=== PATIENT | female | born 1950 | race Caucasian/White ===

== ENCOUNTER 2022-03-03 10:58 | Outpatient (CLI) | payer MEDICARE, OTHER, SELFPAY ==
[2022-03-03 11:14] LABS: Chloride* 100 mmol/L (96-114)
[2022-03-03 11:15] LABS: Potassium* 4.3 mmol/L (3.6-5.1); Sodium* 132 mmol/L (135-149)
[2022-03-03 11:17] LABS: Creatinine* 0.9 mg/dL (0.5-1.5); Estimated Glomerular Filt Rate 68 ml/min
[2022-03-03 11:18] LABS: Blood Urea Nitrogen* 17 mg/dL (7-30); Calcium* 9.2 mg/dL (8.4-10.6); Carbon Dioxide* 28 mmol/L (20-32); Glucose* 84 mg/dL (60-115)
== END 2022-03-03 10:59 | disposition home or self-care (01) ==
PROVIDERS: Family Medicine; PCP Family Medicine; Visit Provider Family Medicine
DX: Z01.818 Encounter for other preprocedural examination (principal)
CPT/HCPCS: 80048; 80061; 82306

== ENCOUNTER 2022-04-06 13:01 | Outpatient (CLI) | payer MEDICARE, OTHER, SELFPAY ==
--- NOTE | 2022-04-06 13:00 | CRLHL7_ITS ---
For Patients: As a result of the Century Cures Act, medical imaging exams and procedure reports are released immediately into your electronic medical record. You may view this report before your referring provider. If you have questions, please contact your health care provider. BILATERAL SCREENING MAMMOGRAM WITH COMPUTER-AIDED DETECTION AND TOMOSYNTHESIS TECHNIQUE: CC and MLO views were obtained. These mammographic images have been obtained using full-field digital technique. These mammographic images were interpreted with the benefit of computer-aided detection. Breast Tomosynthesis was used in this interpretation. COMPARISON FILM: 04/02/21, 03/04/20, 02/27/19. FINDINGS: The breasts are heterogeneously dense, which may obscure small masses IMPRESSION: There is no radiographic evidence for malignancy. ASSESSMENT: BI-RADS Category 1: Negative RECOMMENDATION: Routine screening mammogram in 1 year. A lay language report of this examination will be provided to the patient. Geronimo Venegas M.D. Diagnostic Radiologist [email or web address] YONNY/[email or web address]/Dictated by: Geronimo Venegas MD @ 04/07/2022 11:50:00 AM (Electronically Signed)
== END 2022-04-06 13:02 | disposition home or self-care (01) ==
LOC: MAMMO 13:03
PROVIDERS: PCP Family Medicine; Visit Provider Family Medicine
DX: Z12.31 Encounter for screening mammogram for malignant neoplasm of breast (principal); R92.2 Inconclusive mammogram
CPT/HCPCS: 77063; 77067

== ENCOUNTER 2023-03-10 07:54 | Outpatient (CLI) | payer MEDICARE, OTHER, SELFPAY | END 2023-03-10 07:55 | disposition home or self-care (01) | LOC: NFLDREF 14:53 | PROVIDERS: PCP Family Medicine; Referring Provider Family Medicine; Visit Provider Family Medicine | DX: E78.5 Hyperlipidemia, unspecified (principal) | CPT/HCPCS: 80053; 80061 ==

== ENCOUNTER 2023-03-30 09:41 | Outpatient (CLI) | payer MEDICARE, OTHER, SELFPAY ==
--- NOTE | 2023-03-30 09:45 | CRLHL7_ITS ---
For Patients: As a result of the Cures Act, medical imaging exams and procedure reports are released immediately into your electronic medical record. You may view this report before your referring provider. If you have questions, please contact your health care provider. BILATERAL DIAGNOSTIC MAMMOGRAM WITH COMPUTER-AIDED DETECTION AND TOMOSYNTHESIS RIGHT BREAST ULTRASOUND CLINICAL HISTORY: RIGHT breast nipple inversion. COMPARISON: 04/06/2022, 04/02/2021, 03/04/2020. TECHNIQUE: Digital BILATERAL mammogram in 4 projections. Computer-aided detection and tomosynthesis were used. Real-time ultrasound imaging of RIGHT breast with imaging documentation. BREAST COMPOSITION: There are scattered areas of fibroglandular density FINDINGS: 3D CC/MLO BILATERAL mammogram images submitted. Benign calcifications are present BILATERALLY. No suspicious masses or architectural distortion. No adenopathy. Targeted RIGHT breast ultrasound performed adjacent to the RIGHT nipple. Normal breast tissue is present. No suspicious findings. IMPRESSION: No evidence of malignancy. RECOMMENDATIONS: Annual BILATERAL screening mammography. BI-RADS Category 2: Benign Results and recommendations discussed with the patient. A lay language report of this examination will be provided to the patient. Dictated by Geronimo Venegas MD @ 03/30/2023 11:22:27 AM/camilo ZAIRE/Dictated by: Geronimo Venegas MD @ 03/30/2023 11:22:00 AM (Electronically Signed)
--- NOTE | 2023-03-30 10:15 | CRLHL7_ITS ---
For Patients: As a result of the Century Cures Act, medical imaging exams and procedure reports are released immediately into your electronic medical record. You may view this report before your referring provider. If you have questions, please contact your health care provider. PLEASE SEE BILATERAL BREAST DIAGNOSTIC MAMMOGRAM OF SAME DAY. CRL:[email or web address] ZAIRE/Dictated by: Geronimo Venegas MD @ 03/30/2023 11:22:00 AM (Electronically Signed)
== END 2023-03-30 09:42 | disposition home or self-care (01) ==
LOC: MAMMO 09:42
PROVIDERS: PCP Family Medicine; Visit Provider Family Medicine
DX: N64.59 Other signs and symptoms in breast (principal)
CPT/HCPCS: 76642; 77066; G0279

== ENCOUNTER 2023-06-11 21:30 | Emergency (ER) | payer MEDICARE, OTHER, BC, SELFPAY ==
[2023-06-11] VITALS (7 sets, daily range): BP systolic 151–184; BP diastolic 96–102; PULSE 79–91; RESP 16; TEMP 36.7; O2SAT 94–99; BMI 20.8
--- NOTE | 2023-06-11 21:51 | ED_ITS ---
HPI - General Adult General Chief complaint: Hypertension Stated complaint: high blood pressure, headache Time Seen by Provider: 06/11/23 21:50 History of Present Illness HPI narrative: Pt c/o hypertension and headache. Last Tuesday at urgent care, BP was high. Pt advised to see doctor if BP not going down. Pt states BP has been high all week. Pt states she had a virus two weeks ago 73-year-old woman presenting to the emergency department with concern of elevated blood pressure. Was seen in urgent care and advised to follow-up if pressure is not improved. Continues to check blood pressures which have been elevated. Does arrive here with a blood pressure of 184/96. Was not feeling well around suppertime reporting feeling a little lightheaded and foggy. Has had a headache posterior head occipital insertion area and present for couple of weeks. Recent a viral illness with cough that is finally resolved. Is not short of breath. Not having chest pain. Normally quite active without exercise intolerance. Related Data Previous Rx's Medication Instructions Recorded amlodipine 5 mg tablet 5 mg PO DAILY #90 tabs 06/14/23 Allergies Allergy/AdvReac Type Severity Reaction Status Date / Time penicillin V Allergy Severe Rash Verified 06/14/23 13:30 Review of Systems Status of ROS: Reports: 6 or more systems reviewed and unremarkable except as noted in History and below [facility] Medical History Hx of stress fracture (2018) ?Z87.312 - Personal history of (healed) stress fracture (ICD-10) Cataracts, bilateral ?H26.9 - Unspecified cataract (ICD-10) Osteopenia ?M85.80 - Other specified disorders of bone density and structure, unspecified site (ICD-10) Inversion of nipple (2012) ?N64.59 - Other signs and symptoms in breast (ICD-10) Dyslipidemia ?E78.5 - Hyperlipidemia, unspecified (ICD-10) Chronic pain of breast ?N64.4 - Mastodynia (ICD-10) ?G89.29 - Other chronic pain (ICD-10) Surgical History Status post wrist surgery (2013) ?Z98.890 - Other specified postprocedural states (ICD-10) History of foot surgery (2017) ?Z98.890 - Other specified postprocedural states (ICD-10) History of dilation and curettage ?Z98.890 - Other specified postprocedural states (ICD-10) History of colonoscopy (2014) ?Z98.890 - Other specified postprocedural states (ICD-10) History of arthroscopy of right knee (11/20/18) ?Z98.890 - Other specified postprocedural states (ICD-10) Social History Narrative: , retired teacher, 2 adult children, lives in [place] exercises regularly- daily; walks 1h treadmill, weights non-smoker social drinker- 4 glasses wine/week What is your current living situation?: I presently have a place to live Problems where you live: declined to answer In the past 12 months, utilities in danger of being shut off: no In past 12 months, lack of transportation kept you from medical appts, meetings, work, or getting things needed for daily living: no In the past 12 mos, have been you worried that your food would run out before you had money to buy more?: never true In the past 12 mos, the food you bought just didn't last and you didn't have money to buy more?: never true Smoking Status: Never smoker Do you use any of these nicotine containing products: None Second hand tobacco smoke exposure: No How often do you have a drink containing alcohol: 2-3 times a week AUDIT-C Alcohol total score: 3 Non-prescribed substance use: denies use How often does anyone, including family, friends and others, physically hurt you : never How often does anyone, including family, friends and others, insult or talk down to you: never How often does anyone, including family, friends and others, threaten you with harm: never How often does anyone, including family, friends and others, scream or curse at you: never Little interest or pleasure in doing things: not at all Feeling down, depressed, or hopeless: not at all Exam Narrative: Exam Narrative: Very pleasant. Carefully casually groomed. Speaking fluidly easily. Cranial nerves 2-12 intact. Full strength throughout. Lower extremities are without edema. Lungs are clear. Heart in mildly elevated rate with regular rhythm. No murmur rub or gallop identified. Neck is supple. Some soreness in the kristen cervical muscle occipital insertion. Const: Vital Signs, click to edit/add: Vital Signs - 24 hr 06/11/23 21:32 06/11/23 22:57 06/11/23 22:57 Temperature 98.1 F Pulse Rate 84 Pulse Rate [Pulse Oximeter] 91 Respiratory Rate 16 Blood Pressure Blood Pressure [Ri ght Upper Arm] 184/96 H 162/102 H Pulse Oximetry 99 95 Oxygen Delivery Me thod Room Air Room Air 06/11/23 23:00 06/11/23 23:02 06/11/23 23:03 Temperature Pulse Rate 91 84 79 Pulse Rate [Pulse Oximeter] Respiratory Rate Blood Pressure 152/97 H Blood Pressure [Ri ght Upper Arm] Pulse Oximetry 96 96 97 Oxygen Delivery Me thod 06/11/23 23:30 06/11/23 23:32 Temperature Pulse Rate 87 89 Pulse Rate [Pulse Oximeter] Respiratory Rate Blood Pressure 151/97 H Blood Pressure [Ri ght Upper Arm] Pulse Oximetry 96 94 Oxygen Delivery Me thod Documenting provider has reviewed patient's vital signs: yes Course Vital Signs Vital signs: Initial Vital Signs Temperature 98.1 F 06/11/23 21:32 Temperature Source Temporal Artery Scan 06/11/23 21:32 Pulse Rate 91 06/11/23 21:32 Respiratory Rate 16 06/11/23 21:32 Blood Pressure 184/96 H 06/11/23 21:32 Blood Pressure Mean 125 H 06/11/23 21:32 Blood Pressure Position Sitting 06/11/23 21:32 Pulse Oximetry 99 06/11/23 21:32 Oxygen Delivery Method Room Air 06/11/23 21:32 Vital Signs Temperature 98.1 F 06/11/23 21:32 Pulse Rate 91 06/11/23 21:32 Respiratory Rate 16 06/11/23 21:32 Blood Pressure 184/96 H 06/11/23 21:32 Pulse Oximetry 99 06/11/23 21:32 Oxygen Delivery Method Room Air 06/11/23 21:32 Temperature 98.1 F 06/11/23 21:32 Pulse Rate 89 06/11/23 23:32 Respiratory Rate 16 06/11/23 21:32 Blood Pressure 151/97 H 06/11/23 23:32 Pulse Oximetry 94 06/11/23 23:32 Oxygen Delivery Method Room Air 06/11/23 22:57 Medications Administered Medications: Discontinued Medications Generic Name Dose Route Start Last Admin Trade Name Francis PRN Reason Stop Dose Admin Amlodipine Besylate 5 mg 06/11/23 23:49 06/12/23 00:15 Amlodipine 5 Mg Tablet PO 06/11/23 23:50 5 mg ONCE ONE Administration Sodium Chloride 1,000 mls @ 1,000 mls/hr 06/11/23 22:16 06/11/23 23:47 0.9 % Sodium Chloride 1000 Ml IV 06/11/23 23:15 Infused .Q1H ONE Infusion Ketorolac Tromethamine 15 mg 06/11/23 22:16 06/11/23 22:34 Ketorolac 15 Mg/Ml Inj IVP 06/11/23 22:17 15 mg ONCE ONE Administration Medical Decision Making MDM Narrative Medical decision making narrative: Reviewing records does show history of elevated blood pressures. Generally both systolic and diastolic numbers are elevated. Headache would appear to be tension related. She would like relief of this headache. She is not encephalopathic and I do not see evidence of infectious etiology her otherwise to suggest meningitis. Feelings of stress over known elevated blood pressures might be contributing to feelings of fogginess. She may be sensitive to relatively modest elevations in blood pressure as well. After discussion she would like treatment for headache. Decided to initiate also antihypertensive. Considering elevated diastolic and systolic numbers and given level of activity I think she would tolerate amlodipine and probably not have much in the way of peripheral edema. Would want to avoid beta-daisy here of course. Does not have diabetes or other renal issues to prompt consideration of other medications of more renal action. Initiating IV fluids lower dose ketorolac I think should be sufficient. Will also check labs and EKG as I do not see prior yet, as diagnosing here with hypertension and initiating treatment. On reassessment is feeling improved. Labs are quite good. However hemoglobin has drifted a little bit down 1 g from prior check. She is not describing any evidence of bleeding. Further exploration here I thinking can continue in primary care. See patient discharge plan for further discussion Medical Records Medical records reviewed: Yes I reviewed the patient's medical records Lab Data Lab results reviewed: Yes I reviewed the patient's lab results Labs: Lab Results 06/11/23 06/11/23 Range/Units 22:27 23:50 Hgb 10.9 L (12.0-16.0) gm/dL Sodium 135 (135-149) mmol/L Potassium 3.7 (3.6-5.1) mmol/L Chloride 101 (96-114) mmol/L Carbon Dioxide 25 (20-32) mmol/L Anion Gap 9 (7-15) mEq/L BUN 9 (7-30) mg/dL Creatinine 0.6 (0.5-1.5) mg/dL Estimated Creat Clear 44.18 Estimated GFR 94 ml/min Glucose 84 (60-115) mg/dL Calcium 9.2 (8.4-10.6) mg/dL Troponin I < 0.01 L (0.01-0.04) ng/mL NT-Pro-B Natriuret Pep 213 pg/mL TSH 2.090 (0.270-4.20) uIU/mL Urine Color Yellow (Yellow) Urine Appearance Clear (Clear) Urine pH 7.0 (5.0-8.5) Ur Specific Sanford 1.010 (1.000-1.030) Urine Protein Negative (Negative) Urine Glucose (UA) Negative (Negative) Urine Ketones Negative (Negative) Urine Blood Negative (Negative) Urine Nitrite Negative (Negative) Urine Bilirubin Negative (Negative) Urine Urobilinogen 0.2 (0.2-1.0) Ur Leukocyte Esterase Negative (Negative) Urine RBC 0-2 (0-2) Urine WBC 0-2 (0-5) Ur Squamous Epith Cells Few (None-Few) Urine Bacteria None (None) ECG Data Attestation: I personally reviewed and interpreted this ECG as follows: (Normal sinus rhythm. Rate of 89) Discharge Plan Discharge Clinical Impression: Headache High blood pressure Qualifiers: Hypertension type: primary hypertension Qualified Code(s): I10 - Essential (primary) hypertension Patient Disposition: Home w/ Parent or Adult Condition: Improved Additional Instructions: Stay well-hydrated. Continue usual level of activity. Please follow-up with the primary care provider as scheduled. I anticipate that by then will see some medication effect on your blood pressure. Take your next dosing of medication at noon tomorrow and then on Tuesday, in the morning. Prescriptions: No Action amlodipine 5 mg tablet 5 mg PO DAILY Qty: 90 0RF Follow Up/Referrals: Nilda Eason MD [Primary Care Provider] - Stand Alone Forms: [facility] Info Instructions
[2023-06-11] MEDS: 0.9 % SODIUM CHLORIDE 1000 ml 1,000 ML IV (22:34)
[2023-06-11] MEDS: KETOROLAC 15 MG/ML inj IVP (22:34)
[2023-06-11 22:47] LABS: Hemoglobin* 10.9 gm/dL (12.0-16.0)
[2023-06-11 22:51] LABS: Chloride* 101 mmol/L (96-114); Potassium* 3.7 mmol/L (3.6-5.1); Sodium* 135 mmol/L (135-149)
[2023-06-11 22:53] LABS: Creatinine* 0.6 mg/dL (0.5-1.5); Est. Creatinine Clearance* 44.18; Estimated Glomerular Filt Rate 94 ml/min
[2023-06-11 22:54] LABS: Anion Gap 9 mEq/L (7-15); Blood Urea Nitrogen* 9 mg/dL (7-30); Calcium* 9.2 mg/dL (8.4-10.6); Carbon Dioxide* 25 mmol/L (20-32); Glucose* 84 mg/dL (60-115)
[2023-06-11 23:20] LABS: NT Pro B Type NatriureticPept* 213 pg/mL; Troponin I* < 0.01 ng/mL (0.01-0.04)
[2023-06-11 23:57] LABS: Appearance Urine Clear (Clear); Bilirubin Urine Negative (Negative); Blood Urine Negative (Negative); Color Urine Yellow (Yellow); Glucose Urine Negative (Negative); Ketones Urine Negative (Negative); Leukocyte Esterase Urine Negative (Negative); Nitrite Urine Negative (Negative); Protein Urine Negative (Negative); Urobilinogen Urine 0.2 (0.2-1.0)
[2023-06-12 00:05] LABS: RBC Urine 0-2 (0-2); Squamous Epithelial Cell Urine Few (None-Few); WBC Urine 0-2 (0-5)
[2023-06-12] MEDS: AMLODIPINE 5 MG TABLET PO (00:15)
== END 2023-06-11 23:30 | disposition home or self-care (01) ==
PROVIDERS: Emergency Provider Family Medicine; PCP Family Medicine
DX: I10 Essential (primary) hypertension (principal)
CPT/HCPCS: 36415; 80048; 81001; 83880; 84443; 84484; 85018; 93005; 96374; 99284; A9270; J1885; J7030

== ENCOUNTER 2023-06-14 13:44 | Outpatient (CLI) | payer MEDICARE, OTHER, BC, SELFPAY | END 2023-06-14 13:45 | disposition home or self-care (01) | PROVIDERS: PCP Family Medicine; Visit Provider Family Medicine | DX: D64.9 Anemia, unspecified (principal); I10 Essential (primary) hypertension | CPT/HCPCS: 80053; 82607; 82728; 83540; 83550; 84439; 84443; 85045 ==

== ENCOUNTER 2023-06-23 09:34 | Outpatient (CLI) | payer MEDICARE, OTHER, BC, SELFPAY ==
--- NOTE | 2023-06-23 11:42 | P.ANES_ITS ---
Anesthesia Charges Start Date/Time Anesthesia Start Date: 06/23/23 Anesthesia Start Time: 11:00 Stop Date/Time Anesthesia Stop Date: 06/23/23 Anesthesia Stop Time: 11:40 Summary Extremes of Age - Over 70 or under 1: [employer]
--- NOTE | 2023-06-23 13:35 | W.ANESCHARGE ---
Anesthesia Charges Start Date/Time Anesthesia Start Date: 06/23/23 Anesthesia Start Time: 11:00 Stop Date/Time Anesthesia Stop Date: 06/23/23 Anesthesia Stop Time: 11:40 Summary Extremes of Age - Over 70 or under 1: MDA
[2023-06-25 05:17] LABS: Carcinoembryonic Antigen 1.3 ng/mL
== END 2023-06-23 09:35 | disposition home or self-care (01) ==
LOC: OP CLINIC 09:35
PROVIDERS: PCP Family Medicine; Visit Provider Surgery
DX: D50.0 Iron deficiency anemia secondary to blood loss (chronic) (principal); K63.5 Polyp of colon; K92.2 Gastrointestinal hemorrhage, unspecified
CPT/HCPCS: 00811; 00813; 36415; 43239; 45380; 82378; 88305; 88341; 88342; 99100; J2704

== ENCOUNTER 2023-06-29 10:27 | Outpatient (CLI) | payer MEDICARE, OTHER, BC, SELFPAY ==
--- NOTE | 2023-06-29 11:00 | CT_ITS ---
Patient: PARISH DAWSON Facility:?[facility] Patient ID:?[id number] Site Patient ID:?[id number]. Site :?[id number] Study:?CT-Chest/Abd/Pelvis W/ 63CC ISOVUE 370 AND POSITIVE -06/29/2023 12:15:29 PM Ordering Physician:LIZET Final Report: INDICATION: Malignancy screening TECHNIQUE: CT chest, abdomen and pelvis acquired with 63 mL Isovue 370 IV contrast. Positive oral contrast was also administered. COMPARISON: None. FINDINGS: CHEST: Cardiovascular structures: Heart size is normal. Thoracic aorta and main pulmonary artery are normal in caliber. Mediastinum and vickie: No mass or adenopathy. Lungs and pleura: Lungs and pleural spaces are clear. No suspicious nodules, infiltrates, or effusions. Chest wall and axilla: No mass or adenopathy. Bones: No suspicious bone lesions. Unremarkable for age. ABDOMEN AND PELVIS: Liver: Unremarkable. Gallbladder and bile ducts: Unremarkable. Pancreas: Unremarkable. Spleen: Unremarkable. Adrenal glands: Unremarkable. Kidneys: 2 cm possibly enhancing mass in the posterior lateral left kidney. Right kidney normal. GI tract: Unremarkable. Vascular structures: Unremarkable. Lymph nodes: Unremarkable. Miscellaneous: Unremarkable. No free air or significant free fluid. Pelvic Organs: Unremarkable. Bones: No suspicious bone lesions. Unremarkable for age. IMPRESSION: 2 cm indeterminate left renal mass. Recommend ultrasound. Please note that all CT scans at this facility use dose modulation, iterative reconstruction, and/or weight-based dosing when appropriate to reduce radiation dose to as low as reasonably achievable. Dictated by Jan Lennon MD @ 06/29/2023 4:00:41 PM Signed by:?Jan Lennon MD @06/29/2023 4:00:41 PM (Electronic Signature)
== END 2023-06-29 10:28 | disposition home or self-care (01) ==
LOC: CT 10:28
PROVIDERS: PCP Family Medicine; Visit Provider Surgery
DX: Z12.11 Encounter for screening for malignant neoplasm of colon (principal); N28.89 Other specified disorders of kidney and ureter
CPT/HCPCS: 71260; 74177; Q9965; Q9967

== ENCOUNTER 2023-07-06 14:45 | Outpatient (CLI) | payer MEDICARE, OTHER, BC, SELFPAY ==
--- NOTE | 2023-07-06 15:00 | US_ITS ---
Patient: PARISH DAWSON Facility:?[facility] Patient ID:?[id number] Site Patient ID:?[id number]. Site :?[id number] Study:?US-Abdomen Bilateral RENAL-07/06/2023 3:21:28 PM Ordering Physician:?SHONA PAL Final Report: CLINICAL HISTORY: FOLLOW UP RENAL MASS COMPARISON: CT chest 06/29/2023 TECHNIQUE: Costa scale and color Doppler images were acquired of the kidneys. FINDINGS: Solid near isoechoic left renal mass measuring 3.9 x 2.4 x 2.8 cm. No hydronephrosis. The right kidney measures 10.6cm in length and the left kidney measures 10.5cm in length. The renal cortex appears of normal thickness. IMPRESSION: Solid left renal mass measuring 3.9 x 2.4 x 2.8 cm. Dictated by Geronimo Venegas MD @ 07/07/2023 9:01:21 AM Signed by:?Geronimo Venegas MD @07/07/2023 9:01:21 AM (Electronic Signature)
== END 2023-07-06 14:46 | disposition home or self-care (01) ==
LOC: US 14:46
PROVIDERS: PCP Family Medicine; Visit Provider Surgery
DX: N28.89 Other specified disorders of kidney and ureter (principal)
CPT/HCPCS: 76775

== ENCOUNTER 2023-07-20 14:10 | Outpatient (CLI) | payer MEDICARE, OTHER, BC, SELFPAY ==
--- OUTSIDE RECORDS SUMMARY | 2023-07-20 14:13 | XMS_ITS | Clinical Summary ---
Author Name Unknown Organization [facility] Address [address] [place] [address] Care Team Providers Care Land Classifier Name Role Phone Unavailable Primary Care Provider Unavailabl e Source Comments Patient records contain information from all sites at [facility]. For routine questions regarding patient records, call [phone] during business hours, M-F 8:00 AM - 5:00 PM Central Time. Record requests for emergency care only can be directed to [phone] at any time.[facility] Allergies Active Allergy Reactions Criticality Noted Date Comments Penicillins Rash 11/06/2013 Medications Medication Sig Dispensed Refills Start Date End Date Status amLODIPine (NORVASC) 5 mg tablet TAKE 1 TABLET BY MOUYH DAILY 07/06/2023 Active Encounters Date Type Department Care Team Description 07/20/2023 9:00 AM CDT Virtual Visit Division of Colon and Rectal Surgery in [place], [place] [address] [place] [address] Severo Rose P.A.-C. Polyp Colon Adenomatous (Primary Dx); Hypertension Essential Primary 07/19/2023 11:45 AM CDT Ancillary Procedure Department of Radiology in [place], [place] [address] [place] [address] Severo Rose P.A.-C. Polyp Colon Adenomatous 07/12/2023 1:00 PM CDT Comprehensive Visit Department of Urology in [place], [place] [address] [place] [address] Evaristo Tate M.D. Mass Kidney (Primary Dx) 07/12/2023 9:41 AM CDT - 07/12/2023 11:59 PM CDT Hospital Encounter Department of Laboratory Medicine and Pathology, [facility], in [place], [place] [address] [place] [phone] Durga Hudson M.D. Mass Kidney Discharge Disposition: Home or Self Care 07/12/2023 9:41 AM CDT - 07/12/2023 11:59 PM CDT Hospital Encounter Department of Laboratory Medicine and Pathology, [facility] in [place], [place] [address] [place] [phone] Durga Hudson M.D. Mass Kidney Discharge Disposition: Home or Self Care 07/11/2023 4:45 PM CDT Clinical Communication Virtual Review in [address] [address] Pre-visit Intake 07/11/2023 Clinical Communication Department of Urology in [address] [phone] Evaristo Tate M.D. Pre-visit Testing Orders 07/11/2023 Clinical Communication Division of Nephrology and Hypertension in [address] [address] Baylee Mullins M.D., Ph.D. Triage approved NARF (Renal cyst. Not PKD Stone); NEW PKD Patient (NEW PKD PT) from Last 3 Months Social History Tobacco Use Types Packs/Day Years Used Date Smoking Tobacco: Never Smokeless Tobacco: Never Tobacco Cessation:Counseling Given: Not Answered [facility] Utilities Answer Date Recorded In the past 12 months has [employer], oil, or water [employer] threatened to shut off services in your home? No 07/11/2023 Exercise Vital Sign Answer Date Recorde d On average, how many days pe r week do you engage in moderate to strenuous exercise (like a brisk walk)? 5 days 07/11/2023 On average, how many minutes do you engage in exercise at this level? 70 min 07/11/2023 Hunger Vital Sign Answer Date Recorded Within the past 12 months, y ou worried that your food would run out before you got the money to buy more. Never true 07/11/19 24 Within the past 12 months, t he food you bought just didn't last and you didn't have money to get more. Never true 07/11/2023 PRAPARE - Transportation Answer Date Re corded In the past 12 months, has l ack of transportation kept you from medical appointments or from getting medications? No 11/2023 In the past 12 months, has l ack of transportation kept you from meetings, work, or from getting things needed for daily living? No 07/11/2023 Nutrition Answer Date Recorded Nutrition: EVOO Fat Source Unknown 07/10 On average, how many serving s of fruits and vegetables do you eat per day (serving size is equal to 1 cup or approximately the size of a tennis ball)? 5 or more 07/11/2023 Dental Answer Date Recorded Dental: Regular Dentist Yes 07/11/19 Employment Answer Date Recorded Employment status Retired 07/11/2023 Housing Stability Answer Date Recorded What is your living situation today? I have a [facility] place to live 07/11/2023 Sex and Gender Information Value Date Recorded Sex Assigned at Female 07/11/2023 7:23 PM CDT Gender Identity Female 07/11/2023 7:23 PM CDT Sexual Orientation Straight 07/11/2023 7: 23 PM CDT Plan of Treatment Upcoming Encounters Date Type Department Care Team (Latest Contact Info) Description 07/22/2023 9:00 AM CDT Comprehensive Visit Division of Colon and Rectal Surgery in [place], [place] [address] [place] [address] Kayode Daly M.D. [address] [place] [phone] 07/22/2023 9:40 AM CDT Ancillary Procedure Department of Cardiovascular Medicine in [place], [place] [address] [place] [address] Severo Rose P.A.-C. [address] [place] [phone] 09/28/2023 11:00 AM CDT Comprehensive Visit Division of Nephrology and Hypertension in [place], [place] [address] [place] [address] Baylee Mullins M.D., Ph.D. [address] [place] [address] Health Maintenance Due Date Last Done Comments Bone Density Scan (Osteoporo sis Screen) 1949 CT Colonography 1950 Cologuard 1950 Colonoscopy 1950 Colorectal Cancer Surveillance 1950 Hepatitis C Screening 1950 Mammogram 09/18/2013 09/18/2012, 05/03/2011 Fasting Glucose for Diabetes Screening 11/04/2021 11/04/2018 COVID-19 Vaccine ( - 2022-2 4 season) 2022 02/17/2021, 06/19/2020, 06/01/2020 Depression Screening (Annual PHQ-2) 04/04/2023 Fall Risk Screen (Annual) 04/04/2023 DTaP,Tdap,and Td Vaccines (2 - Td or Tdap) 10/20/2023 10/19/2013 Pneumococcal vaccine (65+ years) Completed 01/12/20, 06/06/2015 Zoster Vaccines Completed 04/09/2021, 07/0 04/2020, 12/26/2014 Influenza Vaccine Completed 03/15/2023, , 03/04/2020, Additional history exists Procedures Procedure Name Priority Date/Time Associated Diagnosis Comments DIPSTICK, U Routine 07/12/2023 10:26 AM CDT PH, U Routine 07/12/2023 10:26 AM CDT OSMOLALITY, U Routine 07/12/2023 10:26 AM CDT MICROSCOPIC AUTOMATED Routine 07/12/2023 10:26 AM CDT URINALYSIS WITH MICROSCOPIC Routine 07/12/2023 10:26 AM CDT Mass Kidney CALCIUM, TOT, S/P Routine 07/12/2023 10:05 AM CDT Mass Kidney CREATININE WITH EGFR, S/P Routine 07/12/2023 10:05 AM CDT Mass Kidney CBC WITH DIFFERENTIAL, B Routine 07/12/2023 10:05 AM CDT Mass Kidney ASPARTATE AMINOTRANSFERASE (AST), S/P Routine 07/12/2023 10:05 AM CDT Mass Kidney ALANINE AMINOTRANSFERASE (ALT), S/P Routine 07/12/2023 10:05 AM CDT Mass Kidney ALKALINE PHOSPHATASE, S/P Routine 07/12/2023 10:05 AM CDT Mass Kidney BUN (BLOOD UREA NITROGEN), S/P Routine 07/12/2023 10:05 AM CDT Mass Kidney ELECTROLYTE (CHEM 4) PANEL, S/P Routine 07/12/2023 10:05 AM CDT Mass Kidney OUTSIDE US BODY Routine 07/06/2023 3:[address] BODY Routine 06/29/2023 11:55 AM CDT EXTI BASIC METABOLIC PANEL, FASTING, S Routine 11/04/2018 11:00 AM CDT BI BREAST DIAGNOSTIC BILATERAL RAD - Routine (most inpatients and all outpatients) 09/18/2012 8:31 AM CDT from Last 3 Months or Most Recently Relevant to Health Maintenance Results * Dipstick, Urine (07/12/2023 10:26 AM CDT) Hemoglobin, QL, U Negative Negative 07/12/2023 11:12 AM CDT DTL Leukocyte Esterase, U Negative Negative 07/12/2023 11:12 AM CDT DTL Nitrite, U Negative Negative 07/12/2023 11:12 AM CDT DTL Ketone, U Negative Negative mg/dL 07/12/2023 11:12 AM CDT DTL Glucose, U Negative Negative mg/dL 07/12/2023 11:12 AM CDT DTL Urine 07/12/2023 10:2 6 AM CDT 07/12/2023 10:47 AM CDT Durga Hudson M.D. LAB URINE ORDERABLES Performing Organization Address City/[facility]/ZIP Co de Phone Number [facility] [address] [place], [place] [phone] [place] [address] 200 [place] [address] * Microscopic Automated (07/12/2023 10:26 AM CDT) Microscopy Normal 07/12/2023 11:12 AM CDT DTL RBC None Seen <3 /hpf 07/12/2023 11:12 AM CDT DTL WBC None Seen /hpf 07/12/2023 11:12 AM CDT DTL Comment: ----REFERENCE VALUE---- <4 ??(Males) <11 (Females) Urine 07/12/2023 10:2 6 AM CDT 07/12/2023 10:47 AM CDT Narrative Authorizing Provider Result Sirena Hudson M.D. LAB URINE ORDERABLES Performing Organization Address City/[facility]/ZIP Co de Phone Number [facility] [address] [place], [place] [address] [address] [place] [address] * pH, Urine (07/12/2023 10:26 AM CDT) pH, U 6.1 4.5 - 8.0 07/12/2023 11: 54 AM CDT DTL Urine 07/12/2023 10:2 6 AM CDT 07/12/2023 10:47 AM CDT Narrative Authorizing Provider Result Sirena Hudson M.D. LAB URINE ORDERABLES Performing Organization Address City/[facility]/ZIP Co de Phone Number [facility] [address] [place], [place] [phone] [place] [address] 200 [place] [address] * Osmolality, Urine (07/12/2023 10:26 AM CDT) Osmolality, U 333 150 - 1150 mOsm/kg 07/12/2023 11:54 AM CDT DTL Urine 07/12/2023 10:2 6 AM CDT 07/12/2023 10:47 AM CDT Durga Hudson M.D. LAB URINE ORDERABLES Performing Organization Address City/[facility]/ZIP Co de Phone Number [facility] [address] [place] [address], [facility] [address] [place] [address] * Urinalysis, with Microscopic: Urine, Midstream (07/12/2023 10:26 AM CDT) Source Urine, Urine, Midstream 07/12/2023 10:47 AM CDT DTL Color, U Yellow 07/12/2023 10:47 AM CDT DTL Clarity, U Clear 07/12/2023 10:47 AM CDT DTL Protein, U 8 <26 mg/dL 07/12/2023 11:36 AM CDT DTL Protein/Osmol ality 0.24 <0.42 ratio 07/12/2023 11:54 AM CDT DTL Predicted 24 HR Protein, U 183 <229 mg/24 h 07/12/2023 11:54 AM CDT DTL Predicted Range 45-742 mg/24 h 07/12/2023 11:54 AM CDT DTL Urine (Urine, Midstream) 07/12/2023 10:26 AM CDT 07/12/2023 10:47 AM CDT Durga Hudson M.D. LAB URINE ORDERABLES [facility] [address] [place] [address], [facility] [address] [place] [address] * Electrolyte (Chem 4) Panel (07/12/2023 10:05 AM CDT) Sodium, S 137 135 - 145 mmol/L 07/12/2023 11:22 AM CDT DTL Potassium, S 4.9 3.6 - 5.2 mmol/L 07/12/2023 11:22 AM CDT DTL Chloride, S 101 98 - 107 mmol/L 07/12/2023 11:22 AM CDT DTL Bicarbonate, S 27 22 - 29 mmol/L 07/12/2023 11:22 AM CDT DTL Anion Gap 9 7 - 15 07/12/2023 11:22 AM CDT DTL Blood (Blood, Venous) 07/12/2023 10:05 AM CDT 07/12/2023 10:46 AM CDT Durga Hudson M.D. LAB BLOOD ADD-ON [facility] 200 [place] [address], [facility] [address] [place] [address] * CBC with Differential, Blood (07/12/2023 10:05 AM CDT) Pathologist [facility] Hemoglobin 11.7 11.6 - 15.0 g/dL 07/12/2023 11:27 AM CDT DTL Hematocrit 36.7 35.5 - 44.9 % 07/12/2023 11:27 AM CDT DTL Erythrocytes 4.28 3.92 - 5.13 x10(12)/L 07/12/2023 11:27 AM CDT DTL MCV 85.7 78.2 - 97.9 fL 07/12/2023 11:27 AM CDT DTL RBC Distrib Width 15.8 12.2 - 16.1 % 07/12/2023 11:27 AM CDT DTL Platelet Count 324 157 - 371 x10(9)/L 07/12/2023 11:27 AM CDT DTL Leukocytes 4.5 3.4 - 9.6 x10(9)/L 07/12/2023 11:27 AM CDT DTL Neutrophils 2.80 1.56 - 6.45 x10(9)/L 07/12/2023 11:27 AM CDT DHPM Lymphocytes 0.97 0.95 - 3.07 x10(9)/L 07/12/2023 11:27 AM CDT DTL Monocytes 0.51 0.26 - 0.81 x10(9)/L 07/12/2023 11:27 AM CDT DTL Eosinophils 0.14 0.03 - 0.48 x10(9)/L 07/12/2023 11:27 AM CDT DTL Basophils 0.04 0.01 - 0.08 x10(9)/L 07/12/2023 11:27 AM CDT DTL Blood (Blood, Venous) 07/12/2023 10:05 AM CDT 07/12/2023 10:27 AM CDT Durga Hudson M.D. LAB BLOOD ADD-ON Performing Organization Address City/[facility]/ZIP Co de Phone Number [facility] [address] [place], [place] [phone] [place] [address] [address] [place] [address] * BUN (Blood Urea Nitrogen) (07/12/2023 10:05 AM CDT) BUN (Blood Urea Nitrogen), S 18 6 - 21 mg/dL 07/12/2023 11:22 AM CDT DTL Blood (Blood, Venous) 07/12/2023 10:05 AM CDT 07/12/2023 10:46 AM CDT Durga Hudson M.D. LAB BLOOD ADD-ON [facility] [address] [place] [address] * ALT (Alanine Aminotransferase) (07/12/2023 10:05 AM CDT) Alanine Aminotransferase (ALT), S 15 7 - 45 U/L 07/12/2023 11:22 AM CDT DTL Blood (Blood, Venous) 07/12/2023 10:05 AM CDT 07/12/2023 10:46 AM CDT Durga Hudson M.D. LAB BLOOD ADD-ON [facility] [address] [place] [address] * AST (Aspartate Aminotransferase) (07/12/2023 10:05 AM CDT) Aspartate Aminotransferase (AST), S 25 8 - 43 U/L 07/12/2023 11:22 AM CDT DTL Blood (Blood, Venous) 07/12/2023 10:05 AM CDT 07/12/2023 10:46 AM CDT Durga Hudson M.D. LAB BLOOD ADD-ON [facility] [address] [place], [place] [phone] [place] [address] 200 [place] [address] * Alkaline Phosphatase (07/12/2023 10:05 AM CDT) Alkaline Phosphatase, S 57 35 - 104 U/L 07/12/2023 11:22 AM CDT DTL Blood (Blood, Venous) 07/12/2023 10:05 AM CDT 07/12/2023 10:46 AM CDT Durga Hudson M.D. LAB BLOOD ADD-ON [facility] [address] [place] [address] * Creatinine with Estimated GFR (07/12/2023 10:05 AM CDT) Creatinine 0.94 0.59 - 1.04 mg/dL 07/12/2023 11:22 AM CDT DTL Estimated GFR (eGFR) 64 >=60 mL/min/BSA 07/12/2023 11:22 AM CDT DTL Comment: Estimated GFR calculated using the 2020 CKD_EPI creatinine equation. Blood (Blood, Venous) 07/12/2023 10:05 AM CDT 07/12/2023 10:46 AM CDT Durga Hudson M.D. LAB BLOOD ADD-ON Performing Organization Address City/[facility]/[place] [address] * Calcium, Total (07/12/2023 10:05 AM CDT) Calcium, Total, S 9.7 8.8 - 10.2 mg/dL 07/12/2023 11:22 AM CDT DTL Blood (Blood, Venous) 07/12/2023 10:05 AM CDT 07/12/2023 10:46 AM CDT Durga Hudson M.D. LAB BLOOD ADD-ON Performing Organization Address City/[facility]/[place] [address], [place] [address] * US RENAL-Outside US Body (07/06/2023 3:10 PM CDT) Narrative [facility] - 07/12/2023 12:44 AM CDT This order has been created and auto-finalized to support the import of outside images. If available, original interpretation can be found on the Media Tab in Chart Review, in Document Viewer, or as an image in QREADS. If a re-interpretation or overread is required please follow defined workflow. ?? Provider Not In System IMG US PROCEDURES [facility] NA * CT chest abdomen pelv w con-Outside CT Body (06/29/2023 11:55 AM CDT) Narrative II - 07/04/2023 3:24 PM CDT This order has been created and auto-finalized to support the import of outside images. If available, original interpretation can be found on the Media Tab in Chart Review, in Document Viewer, or as an image in QREADS. If a re-interpretation or overread is required please follow defined workflow. ?? Provider Not In System IMG CT PROCEDURES Performing Organization Address City/[facility]/ZIP Co de Phone Number [facility] NA from Last 3 Months or Most Recently Relevant to Health Maintenance
--- OUTSIDE RECORDS SUMMARY | 2023-07-20 14:14 | XMS_ITS | Encounter Summary ---
Author Name Unknown Organization [facility] Address [address] [place] [address] Care Team Providers Care Balance Wheel Screw Hole Driller Name Role Phone Unavailable Primary Care Provider Unavailabl e Encounter Details Date Type Department Care Team (Latest Contact Info) Description 07/19/2023 11:45 AM CDT Ancillary Procedure Department of Radiology in [place], [place] [address] [place] [address] Severo Rose, PTelly [address] [place] [address] Polyp Colon Adenomatous Social History Tobacco Use Types Packs/Day Years Used Date Smoking Tobacco: Never Smokeless Tobacco: Never [facility] Utilities Answer Date Recorded In the past 12 months has th e electric, gas, oil, or water company threatened to shut off services in your [...] your living situation today? I have a [facility] place to live 07/11/2023 Sex and Gender Information Value Date Recorded Sex Assigned at Female 07/11/2023 7:23 PM CDT Gender Identity Female 07/11/2023 7:23 PM CDT Sexual Orientation Straight 07/11/2023 7: 23 PM CDT documented as of this encounter Plan of Treatment Upcoming Encounters Date Type Department Care Team (Latest Contact Info) Description 07/22/2023 9:00 AM CDT Comprehensive Visit Division of Colon and Rectal Surgery in [place], [place] [address] [place] [phone] Kayode Daly M.D. [address] [place] [phone] 07/22/2023 9:40 AM CDT Ancillary Procedure Department of Cardiovascular Medicine in [place], [place] [address] [place] [phone] Severo Rose P.A.-C. [address] [place] [phone] 09/28/2023 11:00 AM CDT Comprehensive Visit Division of Nephrology and Hypertension in [place], [place] [address] [place] [phone] Baylee Mullins M.D., Ph.D. [address] [place] [phone] Pending Results Name Type Priority Associated Diagnoses Date/Time Interpretation of Outside CT Abdomen and or Pelvis Imaging RAD - Routine (most inpatients and all outpatients) Polyp Colon Adenomatous 07/19/2023 11:45 AM CDT documented as of this encounter Visit Diagnoses Diagnosis Polyp Colon Adenomatous documented in this encounter
--- OUTSIDE RECORDS SUMMARY | 2023-07-20 14:14 | XMS_ITS ---
Author Name Unknown Organization [facility] Address [address] [place] [address] Care Team Providers Care Machine Pecan Gatherer Name Role Phone Unavailable Unavailable Unavailable Surgery Details Not on file Complications Check Surgery Details section. Procedure Estimated Blood Loss Check Surgery Details section. Procedure Findings Check Surgery Details section. Procedure Specimens Taken Check Surgery Details section.
--- OUTSIDE RECORDS SUMMARY | 2023-07-20 14:14 | XMS_ITS | Encounter Summary ---
Author Name Unknown Organization [facility] Address [address] [place] [address] Care Team Providers Care Manager Workers Compensation Name Role Phone Unavailable Primary Care Provider Unavailabl e Reason for Referral * Outpatient (Routine) - Authorized Specialty Diagnoses / Procedures Referred By Mack smith Referred To Contact Urology Lexii Tracy P.A.-C. [address] [place] [phone] Evaristo Tate M.D. [address] [place] [phone] Referral ID Status Reason Start Date Expiration Date V isits Requested Visits Authorized [id number] Authorized 07/12/2023 01/10/2025 1 1 * MRI/CAT/PET Scan (Routine) - Authorized Specialty Diagnoses / Procedures Referred By Mack smith Referred To Contact Radiology Diagnoses Mass Kidney Procedures CT Abdomen Pelvis without and with IV Contrast Lexii Tracy P.A.-C. [address] [place] [phone] [facility] Referral ID Status Reason Start Date Expiration Date V isits Requested Visits Authorized [id number] Authorized 07/12/2023 07/11/2024 1 1 Reason for Visit * Appointment Request (Routine) - Closed Specialty Diagnoses / Procedures Referred By Mack t Referred To Contact Urology Diagnoses Mass Kidney Referral ID Status Reason Start Date Expiration Date Visits Re quested Visits Authorized [id number] Closed 07/11/2023 07/10/2024 1 1 Encounter Details Date Type Department Care Team (Latest Contact Info) Description 07/12/2023 1:00 PM CDT Comprehensive Visit Department of Urology in [place], [place] [address] [place] [phone] Evaristo Tate M.D. [address] [place] [phone] Mass Kidney (Primary Dx) Social History Tobacco Use Types Packs/Day Years Used Date Smoking Tobacco: Never Smokeless Tobacco: Never [facility] Utilities Answer Date Recorded In the past [...] your living situation today? I have a [facility] place to live 07/11/2023 Sex and Gender Information Value Date Recorded Sex Assigned at Female 07/11/2023 7:23 PM CDT Gender Identity Female 07/11/2023 7:23 PM CDT Sexual Orientation Straight 07/11/2023 7: 23 PM CDT documented as of this encounter H&P Notes * Lexii Tracy P.A.-C. - 07/12/2023 1:00 PM CDT SUBJECTIVE REASON FOR CONSULT Left renal mass Patient seen on Dr. Tate calendar HISTORY OF PRESENT ILLNESS is a very pleasant 73 y.o.female who presents today for evaluation of a incidental finding of a 2 cm possibly enhancing indeterminate left renal mass. Patient was evaluated locally secondary to cough. She was also noted to have evidence of hypertension at the time. CT chest abdomen pelvis with contrast completed 06/29/2023 was personally reviewed which demonstrates a possibly enhancing, indeterminate 2 cm left renal mass. Right kidney is unremarkable. Patient then had a renal ultrasoundlocally for follow-up in the left renal mass was solid in appearance. She states that she would follow up with her primary care provider and was told her hemoglobin was low. She underwent endoscopy as well as colonoscopy. She has been treated for H pylori and was noted to have a colon polyp with high-grade dysplasia. She does have upcoming evaluation with our colorectal colleagues here. Patient denies gross hematuria, lower urinary tract symptoms or urinary tract infections. She denies constitutional symptoms. She is a lifetime nonsmoker. Denies family history of malignancy. Lower Urinary Symptoms Lower Urinary Sx: hematuria (-) Presence of pelvic pain: abdominal pain (-) bone pain (-) flank pain (+) suprapubic pain (-) perineal pain (-) testicular pain (-) MEDICAL HISTORY Hypertension Right wrist surgery Knee arthroscopy FAMILY HISTORY Patient denies family history of malignancy SOCIAL HISTORY Social History Tobacco Use Smoking status: Never Smokeless tobacco: Never Vaping Use Vaping Use: never used REVIEW OF SYSTEMS Constitutional: - Negative for fatigue. Gastrointestinal: - Negative for abdominal (belly) pain or cramping, nausea and vomiting. Genitourinary: Positive for flank pain. - Negative for blood in urine and testicular pain. Hematologic: - Negative for abnormal lumps or bumps. Neurological: Positive for headaches. OBJECTIVE PHYSICAL EXAMINATION Constitutional: She is oriented to person, place, and time. She appears well- developed and well-nourished. Neurological: She is alert and oriented to person, place, and time. Psychiatric: She has a normal mood and affect. Her behavior is normal. Judgment and thought contentnormal. DIAGNOSTICS LABORATORY: Results from last 7 days Lab Units 07/12/23 1026 UADM SOURCE Urine, Urine, Midstream CLARITY U Clear COLOR U Yellow OSMOLALITY UR 3 mOsm/kg 333 ODESSA PH URINE 6.1 GLUCOSE UR mg/dL Negative PROTEIN UR JENNIFER mg/dL 8 URINE PROTEIN OSMOLALITY RATIO ratio 0.24 PREDICTED RANGE URINE mg/24 h 45-742 BLOOD UA1 Negative ALEXIA MICROSCOPIC EXAMINATION Normal RBC UA ALEXIA /hpf None Seen WBC UR HPF /hpf None Seen NITRITE U Negative LEUKOCYTES U3 Negative KETONES UA mg/dL Negative Creatinine 0.94, estimated GFR 64 IMAGING: Personally reviewed outside CT chest abdomen pelvis with contrast dated 06/29/2023. Demonstrates indeterminate, possibly enhancing 2 cm left renal mass. Per outside radiology report CT of the chest demonstrated no evidence of pulmonary nodules. ASSESSMENT / PLAN #1 Left renal mass #2 Colon adenoma, high-grade dysplasia, undergoing evaluation with colorectal #[address] Tate and I had the pleasure of meeting with and her in consultation today.Reviewed the situation with the patient. Personally reviewed outside imaging studies. Discussed thefinding of left renal mass. We discussed management strategies for renal masses including active surveillance, cryoablation, robotic partial nephrectomy as well as radical nephrectomy. Patient's cross-sectional imaging was completed with contrast alone and discussed with the patient it is most helpful to have a renal mass protocol CT scan (with and without contrast) to assess for enhancement. Reassured her that the size of the mass is small and chest imaging was negative. She will be undergoingevaluation with our Colorectal surgery colleagues regarding the findings on recent colonoscopy. Discussed with the patient that we would recommend a renal mass protocol CT in the upcoming months. Pending findings, could consider intervention following versus continued surveillance. She will also bein contact with our office following evaluation with colorectal surgery. Patient was provided with our contact information if she has any additional questions or concerns. All questions addressed, patient expressed understanding. Signed by: Lexii Tracy P.A.-C. 07/12/2023 1:53 PM CDT documented in this encounter Plan of Treatment Upcoming Encounters Date Type Department Care Team (Latest Contact Info) Description 07/22/2023 9:00 AM CDT Comprehensive Visit Division of Colon and Rectal Surgery in [place], [place] [address] [place] [phone] Kayode Daly M.D. [address] [place] [phone] 07/22/2023 9:40 AM CDT Ancillary Procedure Department of Cardiovascular Medicine in [place], [place] [address] [place] [phone] Severo Rose P.A.-C. [address] [place] [phone] 09/28/2023 11:00 AM CDT Comprehensive Visit Division of Nephrology and Hypertension in [place], [place] [address] [place] [phone] Baylee Mlulins M.D., Ph.D. [address] [place] [phone] Scheduled Orders Name Type Priority Associated Diagnoses Orde r Schedule Basic Metabolic Panel Lab Routine Mass Kidney Expected: 10/11/2023 (Approximate), Expires: 10/10/2024 CBC with Differential, Blood Lab Routine Mass Kidney Expected: 10/11/2023 (Approximate), Expires: 10/10/2024 CT Abdomen Pelvis without and with IV Contrast Imaging RAD - Routine (most inpatients and all outpatients) Mass Kidney Expected: 10/11/2023 (Approximate), Expires: 10/10/2024 Scheduled Referrals Name Type Priority Associated Diagnoses Orde r Schedule Urology office visit (clinic) Outpatient Referral Routine Expected: 10/11/2023 (Approximate), Expires: 10/10/2024 documented as of this encounter Visit Diagnoses Diagnosis Mass Kidney- Primary documented in this encounter
--- OUTSIDE RECORDS SUMMARY | 2023-07-20 14:14 | XMS_ITS | Clinical Summary ---
Author Name Unknown Organization [facility] Address [address] [place] [address] Care Team Providers Care [employer] [place] [employer] [place] Manager Name Role Phone No Ref-Primary, Physician Primary Care Provider Allergies Active Allergy Reactions Criticality Noted Date Comments Penicillins 11/06/2013 Medications No known medications Active Problems Problem Noted Date Diagnosed Date CARDIOVASCULAR SCREENING; LDL GOAL LESS THAN 160 08/29/2012 Dry eyes 08/29/2012 Retracted nipple Immunizations Name Administration Dates Next Due Influenza Vaccine >6 months,quad, PF 12/27/2014, 01/10/2014 TDAP Vaccine (Adacel) 10/19/2013 Zoster vaccine, live 12/27/2014 Family History Medical History Relation Comments Lipids Brother 2 Lipids Father increased Lipids Sister 2 x2 Relation Status Comments Brother 1 Alive x1 Brother 2 Father Alive Maternal Grandfather Maternal Grandmother Mother Alive Paternal Grandfather Paternal Grandmother Sister 1 Alive x3 Sister 2 Son 1 Alive Son 2 Alive Son 3 Alive Son 4 Alive Step son Son 5 Alive step son Social History Tobacco Use Types Packs/Day Years Used Date Smoking Tobacco: Never Smokeless Tobacco: Never Alcohol Use Standard Drinks/Week Comments Yes 0 (1 standard drink = 0.6 oz pur e alcohol) Adolescent Education Answer Date Record ed Getting School Help Needed Not on file 01/03 Sex and Gender Information Value Date Recorded Sex Assigned at Not on file Gender Identity Not on file Sexual Orientation Not on file Last Filed Vital Signs Vital Sign Reading Time Taken Comments Blood Pressure 132/84 11/04/2018 12:00 PM CDT Pulse 71 11/04/2018 12:00 PM CDT Temperature 36.6 ??C (97.8 ??F) 11/04/2018 10:33 AM C DT Respiratory Rate 16 11/04/2018 12:14 PM CDT Oxygen Saturation 100% 11/04/2018 12:00 PM CDT Inhaled Oxygen Concentration - - Weight 56.7 kg (125 lb) 11/22/2014 9:23 AM CDT Height 165.1 cm (5' 5) 11/22/2014 9:23 AM CDT Body Mass Index 20.8 11/22/2014 9:23 AM CDT Plan of Treatment Not on file Care Teams [employer] [place] [employer] Manager Relationship Specialty Start Date End Date No Ref-Primary, Physician PCP - General 11/04/18
--- OUTSIDE RECORDS SUMMARY | 2023-07-20 14:14 | XMS_ITS | Referral Summary ---
Author Name Unknown Organization [facility] Address [address] [place] [address] Care Team Providers Care Fishing Worker Name Role Phone No Ref-Primary, Physician Primary [...] Vaccine (Adacel) 10/19/2013 Zoster vaccine, live 12/27/2014 Social History Tobacco Use Types Packs/Day Years [...] of Treatment Not on file Care Teams Fishing Worker Relationship Specialty Start Date End Date No Ref-Primary, Physician PCP - General 11/04/18
--- OUTSIDE RECORDS SUMMARY | 2023-07-20 14:14 | XMS_ITS | Encounter Summary ---
Author Name Unknown Organization [facility] Address [address] [place] [address] Care Team Providers Care Manager Culinary Name Role Phone Unavailable Primary Care Provider Unavailabl e Encounter Details Date Type Department Care Team (Latest Contact Info) Description 07/12/2023 9:41 AM CDT - 07/12/2023 11:59 PM CDT Hospital Encounter Department of Laboratory Medicine and Pathology, [facility], in [place], [place] [address] [place] [phone] Durga Hudson M.D. [address] [place] [phone] Mass Kidney Discharge Disposition: Home or Self Care Social History Tobacco Use Types Packs/Day Years Used Date Smoking Tobacco: Never Smokeless Tobacco: Never [facility] Utilities Answer Date Recorded In the past 12 months has [facility] electric, gas, oil, or water company threatened [...] your living situation today? I have a [facility] place to live 07/11/2023 Sex and Gender Information Value Date Recorded Sex Assigned at Female 07/11/2023 7:23 PM CDT Gender Identity Female 07/11/2023 7:23 PM CDT Sexual Orientation Straight 07/11/2023 7: 23 PM CDT documented as of this encounter Medications at Time of Discharge Medication Sig Dispensed Refills Start Date End Date amLODIPine (NORVASC) 5 mg tablet TAKE 1 TABLET BY MOUYH DAILY 07/06/2023 documented as of this encounter Plan of Treatment Upcoming Encounters Date Type Department Care Team (Latest Contact Info) Description 07/22/2023 9:00 AM CDT Comprehensive Visit Division of Colon and Rectal Surgery in [place], [place] 200 [place] [address] Kayode Daly M.D. 200 [place] [phone] 07/22/2023 9:40 AM CDT Ancillary Procedure Department of Cardiovascular Medicine in [place], [place] 200 [place] [address] Severo Rose P.A.-C. 200 [place] [phone] 09/28/2023 11:00 AM CDT Comprehensive Visit Division of Nephrology and Hypertension in [place], [place] [address] [place] [address] Baylee Mullins M.D., Ph.D. [address] [place] [phone] documented as of this encounter Procedures Procedure Name Priority Date/Time Associated Diagnosis Comments DIPSTICK, U Routine 07/12/2023 10:26 AM CDT MICROSCOPIC AUTOMATED Routine 07/12/2023 10:26 AM CDT PH, U Routine 07/12/2023 10:26 AM CDT OSMOLALITY, U Routine 07/12/2023 10:26 AM CDT URINALYSIS WITH MICROSCOPIC Routine 07/12/2023 10:26 AM CDT Mass Kidney documented in this encounter Results * Dipstick, Urine (07/12/2023 10:26 AM [...] CDT Durga Hudson M.D. LAB URINE ORDERABLES [facility] 200 [place] [address], [facility] [place] DTL [facility] 200 [place] [address] * pH, Urine (07/12/2023 10:26 AM CDT) pH, U 6.1 4.5 - 8.0 07/12/2023 11: 54 AM CDT DT Urine 07/12/2023 10:2 6 AM CDT 07/12/2023 10:47 AM CDT Narrative Authorizing Provider Result Sirena Hudson M.D. LAB URINE ORDERABLES Performing Organization Address City/[facility]/ZIP Co de Phone Number [facility] [address] 200 [place] [address] * Osmolality, Urine (07/12/2023 10:26 AM CDT) Pathologist [facility] Osmolality, U 333 150 - 1150 mOsm/kg 07/12/2023 11:54 AM CDT DT Urine 07/12/2023 10:2 6 AM CDT 07/12/2023 10:47 AM CDT Narrative Authorizing Provider Result Sirena Hudson M.D. LAB URINE ORDERABLES Performing Organization Address City/[facility] Co de Phone Number [facility] [address] [place] [address] * Microscopic Automated (07/12/2023 10:26 AM CDT) Pathologist [facility] Microscopy Normal 07/12/2023 11:12 AM CDT DTL RBC None Seen <3 /hpf 07/12/2023 11:12 AM CDT DTL WBC None Seen /hpf 07/12/2023 11:12 AM CDT DTL Comment: ----REFERENCE VALUE---- <4 ??(Males) <11 (Females) Urine 07/12/2023 10:2 6 AM CDT 07/12/2023 10:47 AM CDT Durga Hudson M.D. LAB URINE ORDERABLES [facility] 200 [place] [address], [place] DTL [facility] [address] [place] [address] * Urinalysis, with Microscopic: Urine, Midstream (07/12/2023 [...] CDT Durga Hudson M.D. LAB URINE ORDERABLES [facility] 200 [place] [address], [place] DTL [facility] 200 [place] [address] documented in this encounter Visit Diagnoses Diagnosis Mass Kidney documented in this encounter
--- OUTSIDE RECORDS SUMMARY | 2023-07-20 14:14 | XMS_ITS | Encounter Summary ---
Author Name Unknown Organization 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 [address] [place] [phone] Triage approved NARF (Renal cyst. Not PKD Stone); NEW PKD Patient (NEW PKD PT) Social History Tobacco Use Types Packs/Day Years Used Date Smoking Tobacco: Never Smokeless Tobacco: Never [email or web address] Utilities Answer Date Recorded In the past 12 months has [facility] [employer], gas, oil, or water [employer] threatened to shut off services in your [...] your living situation today? I have a [facility] place to live 07/11/2023 Sex and Gender Information Value Date Recorded Sex Assigned at Female 07/11/2023 7:23 PM CDT Gender Identity Female 07/11/2023 7:23 PM CDT Sexual Orientation Straight 07/11/2023 7: 23 PM CDT documented as of this encounter Miscellaneous Notes * Telephone Encounter - Inge Packer - 07/11/2023 8:50 AM CDT Please sign Clarissa orders as requested in NARF review Thank you documented in this encounter Plan of Treatment Upcoming Encounters Date Type Department Care Team (Latest Contact Info) Description 07/22/2023 9:00 AM CDT Comprehensive Visit Division of Colon and Rectal Surgery in [place], [place] 200 [place] [phone] Kayode Daly M.D. [address] [place] [phone] 07/22/2023 9:40 AM CDT Ancillary Procedure Department of Cardiovascular Medicine in [place], [place] 200 [place] [phone] Severo Rose P.A.-C. 200 [place] [phone] 09/28/2023 11:00 AM CDT Comprehensive Visit Division of Nephrology and Hypertension in [place], [place] [address] [place] [address] Baylee Mullins M.D., Ph.D. [address] [place] [phone] Scheduled Orders Name Type Priority Associated Diagnoses Orde r Schedule Comprehensive Metabolic Panel Lab Routine Cyst Renal Expected: 09/28/2023, Expires: 09/03/2027 Uric Acid Lab Routine Cyst Renal Expected: 09/28/2023, Expires: 09/03/2027 Phosphorus Inorganic Lab Routine Cyst Renal Expected: 09/28/2023, Expires: 09/03/2027 Cystatin C with Estimated GFR Lab Routine Cyst Renal Expected: 09/28/2023, Expires: 09/03/2027 Urinalysis, with Microscopic: Urine, Midstream Lab Routine Cyst Renal Expected: 09/28/2023, Expires: 09/03/2027 Albumin, Random, Urine Lab Routine Cyst Renal Expected: 09/28/2023, Expires: 09/03/2027 documented as of this encounter Visit Diagnoses Diagnosis Cyst Renal- Primary documented in this encounter
--- OUTSIDE RECORDS SUMMARY | 2023-07-20 14:14 | XMS_ITS | Clinical Summary ---
Author Name Unknown Organization [facility] Address [place], [place] [address] Care Team Providers Care Bilingual Teacher Assistant Name Role Phone Nilda Eason MD Primary Care Provider + Allergies Active Allergy Reactions Criticality Noted Date Comments Penicillins Rash 02/24/2016 Medications No known medications Encounters Date Type Department Care Team Description 06/23/2023 Lab Requisition [facility] [phone] Arnold Olmos MD 06/14/2023 Lab Requisition [facility] [phone] Nilda Eason MD from Last 3 Months Social History Tobacco Use Types Packs/Day Years Used Date Smoking Tobacco: Never Tobacco Cessation:Counseling Given: Yes Sex and Gender Information Value Date Recorded Sex Assigned at Not on file Gender Identity Not on file Sexual Orientation Not on file Obstetrics History Last Filed Vital Signs Vital Sign Reading Time Taken Comments Blood Pressure 120/85 08/17/2016 1:01 PM CDT Pulse 71 08/17/2016 1:01 PM CDT Temperature 36.4 ??C (97.6 ??F) 02/24/2016 1:01 PM CS T Respiratory Rate - - Oxygen Saturation 99% 08/17/2016 1:01 PM CDT Inhaled Oxygen Concentration - - Weight 60.7 kg (133 lb 12.8 oz) 06/16/2016 9:38 AM CDT Height - - Body Mass Index - - Plan of Treatment Health Maintenance Due Date Last Done Comments Tdap 1960 Depression screening for age 12+ 1961 BMI (ht and wt on same day) for age 18+ 1967 Hepatitis C screening for age 18-79 1967 Tetanus booster 1969 Colonoscopy through age 75 1994 Lipids for age 45-75 1994 Mammogram for age 45-75 1994 Zoster (shingles) series for age 50+ (1 of 2) 05/04/19 00 DEXA/DXA scan for age 65+ 2014 Pneumococcal series for age 65+ (1 of 1 - PCV) 015 COVID-19 vaccine series ( - 24 season) 3 Influenza for age 65+ 12/04/2023 Procedures Procedure Name Priority Date/Time Associated Diagnosis Comments LAB TRACKING EVENT Routine 06/23/2023 11 :30 AM CDT PATH TISSUE EXAM Routine 06/23/2023 11:0 8 AM CDT LAB TRACKING EVENT Routine 06/14/2023 2: 40 PM CDT PERIPHERAL BLD MORPHOLOGY Routine 06/14/2023 2:00 PM CDT from Last 3 Months Results * LAB TRACKING EVENT (06/23/2023 11:30 AM CDT) Only the most recent of2 resultswithin the time period is included. Other (Other) Client Collect / Unknown 06/23/2023 11:30 AM CDT 06/23/2023 9:23 PM CDT Arnold Olmos MD LAB BILL ONLY [facility] [address] [place] [address], * PATH TISSUE EXAM (06/23/2023 11:08 AM CDT) Case Report Pathology Report ?Case: [id number] ? Authorizing Provider: ??Arnold Olmos MD ?Collected: ? 06/23/2023 1108 ? Ordering Location: ? [facility] ?Received: ?06/24/2023 0835 ? Pathologist: ? Caleb Arreguin MD ? Specimens: ?? A) - Duodenum Biopsy ? B) - Stomach Biopsy ? C) - Cecal Polyp ? 06/27/2023 4:32 PM CDT [facility]-C ENTRAL LABORATORY Final Diagnosis A) DUODENUM, BIOPSY: 1. Normal duodenal mucosa 2. Negative for celiac disease and other enteropathy B) STOMACH, BIOPSY: 1. Helicobacter gastritis with intestinal metaplasia ??(see comment) 2. Intestinal metaplasia: ?a. Extent: ??Focal (involves body only) ?b. Subtype: Complete 3. Negative for dysplasia C) COLON, CECUM, POLYP, BIOPSY: 1. Tubular adenoma 2. Positive for high grade dysplasia 3. Per the colonoscopy report: ?? a. Polyp size: 40 mm ?? b. Resection: No removal (biopsy only) 06/27/2023 4:32 PM CDT [facility] Comment B) There is a current Helicobacter infection with associated focal intestinal metaplasia. These patients are at risk of peptic ulcer disease and have an increased risk of gastric carcinoma. Current (2019) [facility] practice guidelines do not recommend routine endoscopic follow-up. However, exceptions can be made for patients with a family history of gastric cancer, members of high-risk ethnic groups, immigrants from regions with high gastric cancer incidence, or patients with strong personal preference for surveillance. If follow-up is undertaken, options are short term (1 year) follow up to assess risk stratification better and/or ict business development manager (3-5-year intervals) with sampling of antrum and body to look for dysplasia and targeted biopsies of worrisome lesions. Reference: Terrence Richard, et al, [facility] Clinical Practice Guidelines on Management of Gastric Intestinal Metaplasia. Gastroenterology 2020; PMID: [id number] C) This lesion is, at a minimum, an advanced adenoma (see below). Complete removal is advised to exclude a more clinically significant (invasive) component in the remaining unsampled polyp. Advanced adenoma of the colorectum is defined by the [place] [employer] (ACG) as an adenoma that is 1 cm or more in size, contains an appreciable villous component, or has high grade dysplasia (Mazin JH; Polyp Guideline: Diagnosis, Treatment, and Surveillance for Patients with Colorectal Polyps. Am J Gastroenterol 2000;95(11):3053-3 063). This polyp qualifies as such. Patients with advanced adenomas are at increased risk for synchronous and metachronous additional advanced adenomas. Close follow-up is suggested. 06/27/2023 4:32 PM CDT [facility] Clinical Information Ms. Rm is a 73 y.o. with GI bleeding of unknown origin which prompted upper GI endoscopy which showed no gross lesions. Biopsies obtained to rule out microscopic disease. Iron deficiency also prompted colonoscopy which noted a 40 mm cecal polyp which was biopsied. 06/27/2023 4:32 PM CDT [facility] Gross Description A) Received in formalin are 3 louie mucosal fragments averaging 2 mm in greatest dimension, which are entirely submitted in one cassette. It is labeled with the patient's name and designated duodenal biopsy. B) Received in formalin are 6 louie mucosal fragments averaging 2 mm in greatest dimension, which are entirely submitted in one cassette. It is labeled with the patient's name and designated stomach biopsy. C) Received in formalin are 5 louie mucosal fragments averaging 1 mm in greatest dimension, which are entirely submitted in one cassette. It is labeled with the patient's name and designated cecal polyp. Darron Rowan 06/24/2023 11:32 AM 06/27/2023 4:32 PM CDT [facility] Microscopic Description The final diagnosis is based on microscopic examination of appropriate sections of all specimens. B) The histologic findings include: ?Sampling: ?Antral and body mucosae ?Intestinal metaplasia: Present (see diagnosis) ?Helicobacter: ?Present (identified by immunohistochemist honorio) There is a chronic gastritis which predominantly involves gastric body mucosa (gastrin negative), is positive for helicobacter by immunostain, and shows focal intestinal metaplasia. Chromogranin immunostain is negative for ECL hyperplasia, failing to provide evidence for autoimmune gastritis. 06/27/2023 4:32 PM CDT [facility] Additional Information Interpreted at [facility], Central Laboratory - [address] [place] [address] [address] 06/27/2023 4:32 PM CDT [facility] Other (Duodenum Biopsy) 06/23/2023 11:08 AM CDT 06/24/2023 8:35 AM CDT Specimen (specimen) (Stomach Biopsy) 06/23/2023 11:08 AM CDT 06/24/2023 8:35 AM CDT Specimen (specimen) (Cecal Polyp) 06/23/2023 11:30 AM CDT 06/24/2023 8:35 AM CDT Arnold Olmos MD PATHOLOGY/CYTOLOGY [facility] [address] [place] [address], * PERIPHERAL BLD MORPHOLOGY (06/14/2023 2:00 PM CDT) Case Report Special Hematology Report ? Case: [id number] ? Authorizing Provider: ??Nilda Eason MD ??Collected: ? 06/14/2023 1400 ? Ordering Location: ? [facility] ?Received: ?06/15/2023 0659 ? Pathologist: ? Yaya Werner MD ? Specimen: ?Peripheral Blood ? 06/15/2023 1:04 PM CDT [facility] Final Diagnosis PERIPHERAL BLOOD: 1. Mild anemia with borderline microcytic hypochromic features; suspect iron deficiency 2. Recommend correlation with a current ferritin and iron panel 3. Mild thrombocytosis, favor reactive (also potentially secondary to iron deficiency) 4. See COMMENT 06/15/2023 1:04 PM CDT [facility] Comment The features of the anemia are nonspecific, though iron deficiency is suspected based on the indices and red cell morphology. ??Correlation with ancillary studies is recommended. ??The differential includes anemia of chronic disease, anemia of chronic renal insufficiency, anatomic blood loss and medication effect. Serum iron studies, including a ferritin level, may be helpful further characterizing this process. There is no morphologic evidence of hemolysis or findings to suggest a primary bone marrow disorder. This case was also reviewed by Melanie Mcintosh MT, MS ([facility]). 06/15/2023 1:04 PM CDT [facility] Clinical Information The patient is a 73-year-old female. Per CBC scan: Anemia. 06/15/2023 1:04 PM CDT [facility] CBC and Differential HEMATOLOGY PARAMETERS Tested at: ??[facility] ? RESULTS ??EXPECTED VALUES WBC: ? 7.0 ?4.5-37m2363/cu mm ? RBC: ? 4.21 ? 4.00-5.20 mil/cumm ??DECREASED HGB: ? 11.4 ? 12-16 gm/dl ? DECREASED HCT: ? 35.7 ? 33-51% ? MCV: ? 84.8 ? 80-100 fl ? NORMOCYTIC MCH: ? 27.1 ? 26-34 pg ? MCHC: ?31.9 ? 32-36 gm/dl ? HYPOCHROMIC RDW: ? 14.6 ? 11.5-15.5% ? PLT: ? 452 ?140-330u8359/u L ? ELEVATED Differential ?Absolute (%) ?Expected (%) ?(x10*9/L) ? (x10*9/L) Neutrophils: ?5.28 (75) ? 1.7-7.0 (42-72%) ? Lymphocytes: ?1.02 (14.5) ? 0.9-2.9 (20-44%) ?? Monocytes: ?0.49 (7) ? <0.9 (0-11%) ? Eosinophils: ?0.2 (2.8) ?<0.5 (0-2%) ? Basophils: ?0.03 (.4) ?<0.3 (<3.0%) ? Imm Grans: ?0.02 (.3) ?<0.3 (0-3%) ? (Metas, Myelos,Pros) 06/15/2023 1:04 PM CDT [facility] Microscopic Description The final diagnosis is based on microscopic examination of an appropriately stained blood smear. 06/15/2023 1:04 PM CDT [facility]- [facility]VT LABORATORY Additional Information Interpreted at [facility], Central Laboratory - [address] [facility] [address] [address] 06/15/2023 1:04 PM CDT [facility] Blood (Peripheral Blood) 06/14/2023 2:00 PM CDT 06/15/2023 6:59 AM CDT Nilda Eason MD [facility] [address] [place] [address], from Last 3 Months Care Teams Bilingual Teacher Assistant Relationship Specialty Start Date End Date Nilda Eason MD [address] [place] [address] PCP - General Family Practice 02/05/16
--- OUTSIDE RECORDS SUMMARY | 2023-07-20 14:14 | XMS_ITS | Encounter Summary ---
Author Name Unknown Organization [facility] Address [address] [place] [address] Care Team Providers Care Primary Grade Teacher Name Role Phone Unavailable Primary Care Provider Unavailabl e Reason for Referral * Outpatient (Routine) - Authorized Specialty Diagnoses / Procedures Referred By Contac t Referred To Contact Diagnoses Hypertension Essential Primary Procedures ECG 12 Lead Severo Rose P.A.-C. [address] [place] [phone] [facility] Referral ID Status Reason Start Date Expiration Date V isits Requested Visits Authorized [id number] Authorized 07/20/2023 07/19/2024 1 1 * Outpatient (Routine) - Authorized Specialty Diagnoses / Procedures Referred By Contac t Referred To Contact Colon and Rectal Surgery Diagnoses Polyp Colon Adenomatous Severo Rose P.A.-C. [address] [place] [address] [facility] Referral ID Status Reason Start Date Expiration Date V isits Requested Visits Authorized [id number] Authorized 07/20/2023 01/18/2025 1 1 Reason for Visit * Appointment Request (Routine) - Closed Specialty Diagnoses / Procedures Referred By Contac t Referred To Contact Colon and Rectal Surgery Diagnoses Polyp Colon Adenomatous Referral ID Status Reason Start Date Expiration Date Visits Re quested Visits Authorized [id number] Closed 06/30/2023 06/29/2024 1 1 Encounter Details Date Type Department Care Team (Late st Contact Info) Description 07/20/2023 9:00 AM CDT Virtual Visit Division of Colon and Rectal Surgery in [place], [place] [address] [place] [address] Severo Rose P.A.-C. [address] [place] [phone] Polyp Colon Adenomatous (Primary Dx); Hypertension Essential Primary Social History Tobacco Use Types Packs/Day Years Used Date Smoking Tobacco: Never Smokeless Tobacco: Never [facility] Utilities Answer Date Recorded In the past 12 months has th e [employer], gas, oil, or water company threatened to [...] money to buy more. Never true 07/11/19 Within the past 12 months, t he [...] Date Recorded Dental: Regular Dentist Yes 07/11/19 24 Employment Answer Date Recorded Employment status Retired 07/11/2023 Housing Stability Answer Date Recorded What is your living situation today? I have a [place] place to live 07/11/2023 Sex and Gender Information Value Date Recorded Sex Assigned at Female 07/11/2023 7:23 PM CDT Gender Identity Female 07/11/2023 7:23 PM CDT Sexual Orientation Straight 07/11/2023 7: 23 PM CDT documented as of this encounter Consult Notes * Severo Rose P.A.-C. - 07/20/2023 9:00 AM CDT SUBJECTIVE Large cecal polyp I had a phone consultation with Heather who is a 73 y.o. from [place], [place] in the Colorectal Surgery department due to above diagnosis. Her past medical history is notable for hypertension and recently diagnosed renal mass. Heather underwent a colonoscopy locally on 06/22/2022 for iron deficiency anemia. Her last colonoscopy had been in 2018? Colonoscopy results: -40 mm polyp in the cecum adjacent to the IC valve, semi sessile in nature. Biopsies obtained. -Remainder of exam was negative. -Bowel prep was negative Pathology: -tubular adenoma with high grade dysplasia (has not been reviewed at [place]) She underwent a CT of her chest, abdomen and pelvis on 06/29/2023. This showed a possible mass in her left kidney. She was seeing by Urology and they were concerned it was a cancer and recommended resection of the mass. She currently has smaller stools in caliber but increased frequency of bowel movement. She denies fecal incontinence and rare urgency. She has no significant medical history aside from recently diagnosed hypertension. She is active meenakshi daily basis with no concerning cardiac or pulmonary symptoms. PAST MEDICAL HISTORY: History of a heart attack or stroke:No History of abdominal surgery: No History of ANTONIA: NO FAMILY HISTORY: Brother had colorectal cancer around the age of 60 No other cancers. SOCIAL HISTORY: Non smoker. Occasional alcohol use. Assessment #1 Large cecal polyp, involving ICV #2 Left renal mass concerning for a malignancy #3 Hypertension Heather is a overall healthy 73-year-old who was recently found to have a 40 mm polyp in the cecumwith concerned that it was involving the ileocecal valve. Outside pathology which has yet to be reviewed here showed a tubular adenoma with high-grade dysplasia. Local providers did order staging CT scans on her due to concerns that this could be a cancer in her CT scan did show a 2 cm mass in her left kidney. She followed up with our urology colleagues and they are concerned this is a cancer andare recommending resection. I spent some time discussing polyps in general with Heather. We discussed that the larger polyp isin the more degree of dysplasia found the higher the chance of the polyp full turn into cancer if not removed or could already have cancer present within it. We discussed options of an attempted endoscopic removal. We discussed that we have good experience here with experts who are very capable removing difficult polyps. However we discussed that due to the fact that this could be involving the ileocecal valve it could be more difficult to remove definitively. We also discussed the option of a right hemicolectomy and the fact that this would be the most definitive way to ensure that the polyp was removed and that if there was cancer present within it the surgery would be oncological in nature. She wants the most definitive treatment option and therefore prefers to go forth with surgery. She is scheduled to see Dr. Daly this Tuesday. It will be up to him to determine whether he can do acombined procedure with Urology. Approximately 45 minutes were spent on this case including reviewing of outside records, meeting with the patient, counseling them and then doing coordination of care following the visit. documented in this encounter Plan of Treatment Upcoming Encounters Date Type Department Care Team (Latest Contact Info) Description 07/22/2023 9:00 AM CDT Comprehensive Visit Division of Colon and Rectal Surgery in [place], [place] [address] [place] [phone] Kayode Daly M.D. [address] [place] [phone] 07/22/2023 9:40 AM CDT Ancillary Procedure Department of Cardiovascular Medicine in [place], [place] [address] [place] [phone] Severo Rose P.A.-C. [address] [place] [phone] 09/28/2023 11:00 AM CDT Comprehensive Visit Division of Nephrology and Hypertension in [place], [place] [address] [place] [address] Baylee Mullins M.D., Ph.D. [address] [place] [phone] Pending Results Name Type Priority Associated Diagnoses Date/Time Interpretation of Outside CT Abdomen and or Pelvis Imaging RAD - Routine (most inpatients and all outpatients) Polyp Colon Adenomatous 07/19/2023 11:45 AM CDT Scheduled Orders Name Type Priority Associated Diagnoses Order Schedule Interpretation of Outside CT Abdomen and or Pelvis Imaging RAD - Routine (most inpatients and all outpatients) Polyp Colon Adenomatous Expected: 07/19/2023 (Approximate), Expires: 10/17/2024 ECG 12 Lead ECG Routine Hypertension Essential Primary Expected: 07/20/2023, Expires: 10/18/2024 Scheduled Referrals Name Type Priority Associated Diagnoses Orde r Schedule Colon and Rectal Surgery - General consult (clinic) Outpatient Referral Routine Polyp Colon Adenomatous Expected: 07/20/2023, Expires: 10/18/2024 documented as of this encounter Visit Diagnoses Diagnosis Polyp Colon Adenomatous- Primary Hypertension Essential Primary documented in this encounter
--- OUTSIDE RECORDS SUMMARY | 2023-07-20 14:14 | XMS_ITS | Encounter Summary ---
Author Name Unknown Organization [facility] Address [address] [place] [address] Care Team Providers Care Soap Slabber Name Role Phone Unavailable Primary Care Provider Unavailabl e Encounter Details Date Type Department Care Team (Latest Contact Info) Description 07/12/2023 9:41 AM CDT - 07/12/2023 11:59 PM CDT Hospital Encounter Department of Laboratory Medicine and Pathology, [facility], in [place], [place] [address] [place] [phone] Durga Hudson M.D. [address] [place] [phone] Mass Kidney Discharge Disposition: Home or Self Care Social History Tobacco Use Types Packs/Day Years Used Date Smoking Tobacco: Never Smokeless Tobacco: Never [facility] Utilities Answer Date Recorded In the past 12 months has [facility] electric, gas, oil, or water company threatened [...] your living situation today? I have a [facility] place to live 07/11/2023 Sex and [...] Division of Colon and Rectal Surgery in [place], [place] 200 [place] [address] Kayode Daly M.D. 200 [place] [phone] 07/22/2023 9:40 AM CDT Ancillary Procedure Department of Cardiovascular Medicine in [place], [place] 200 [place] [address] Severo Rose P.A.-C. 200 [place] [phone] 09/28/2023 11:00 AM CDT Comprehensive Visit Division of Nephrology and Hypertension in [place], [place] [address] [place] [address] Baylee Mullins M.D., Ph.D. [address] [place] [phone] documented as of this encounter Procedures Procedure Name Priority Date/Time Associated Diagnosis Comments ELECTROLYTE (CHEM 4) PANEL, S/P Routine 07/12/2023 10:05 AM CDT Mass Kidney CBC WITH DIFFERENTIAL, B Routine 024 10:05 AM CDT Mass Kidney BUN (BLOOD UREA NITROGEN), S/P Routine 07/12/2023 10:05 AM CDT Mass Kidney ALANINE AMINOTRANSFERASE (ALT), S/P Routine 07/12/2023 10:05 AM CDT Mass Kidney ASPARTATE AMINOTRANSFERASE (AST), S/P Routine 07/12/2023 10:05 AM CDT Mass Kidney ALKALINE PHOSPHATASE, S/P Routine 07/12/2023 10:05 AM CDT Mass Kidney CREATININE WITH EGFR, S/P Routine 07/12/2023 10:05 AM CDT Mass Kidney CALCIUM, TOT, S/P Routine 07/12/2023 10: 05 AM CDT Mass Kidney documented in this encounter Results * Calcium, Total (07/12/2023 10:05 AM CDT) Calcium, Total, S 9.7 8.8 - 10.2 mg/dL 07/12/2023 11:22 AM CDT DTL Blood (Blood, Venous) 07/12/2023 10:05 AM CDT 07/12/2023 10:46 AM CDT Durga Hudson M.D. LAB BLOOD ADD-ON [facility] 200 [place], [place] [phone] [place] [address] * Creatinine with Estimated GFR (07/12/2023 10:05 AM CDT) Pathologist [facility] Creatinine 0.94 0.59 - 1.04 mg/dL 07/12/2023 11:22 AM CDT DTL Estimated GFR (eGFR) 64 >=60 mL/min/BSA 07/12/2023 11:22 AM CDT DTL Comment: Estimated GFR calculated using the 2020 CKD_EPI creatinine equation. Blood (Blood, Venous) 07/12/2023 10:05 AM CDT 07/12/2023 10:46 AM CDT Durga Hudson M.D. LAB BLOOD ADD-ON Performing Organization Address City/[facility]/ZIP Co de Phone Number [facility] 200 [place], [place] [phone] [place] [address] 200 [place] [address] * CBC with Differential, Blood (07/12/2023 10:05 AM CDT) Hemoglobin 11.7 11.6 - 15.0 g/dL 07/12/2023 [...] M.D. LAB BLOOD ADD-ON Performing Organization Address City/[facility]/ZIP Co de Phone Number [facility] [address] 200 [place] [address] * AST (Aspartate Aminotransferase) (07/12/2023 10:05 AM CDT) Aspartate Aminotransferase (AST), S 25 8 - 43 U/L 07/12/2023 11:22 AM CDT DTL Blood (Blood, Venous) 07/12/2023 10:05 AM CDT 07/12/2023 10:46 AM CDT Durga Hudson M.D. LAB BLOOD ADD-ON [facility] [address] [place] [address] * ALT (Alanine Aminotransferase) (07/12/2023 10:05 AM CDT) Alanine Aminotransferase (ALT), S 15 7 - 45 U/L 07/12/2023 11:22 AM CDT DTL Blood (Blood, Venous) 07/12/2023 10:05 AM CDT 07/12/2023 10:46 AM CDT Durga Hudson M.D. LAB BLOOD ADD-ON [facility] [address] 200 [place] [address] * Alkaline Phosphatase (07/12/2023 10:05 AM CDT) Alkaline Phosphatase, S 57 35 - 104 U/L 07/12/2023 11:22 AM CDT DTL Blood (Blood, Venous) 07/12/2023 10:05 AM CDT 07/12/2023 10:46 AM CDT Durga Hudson M.D. LAB BLOOD ADD-ON Performing Organization Address City/[facility]/ZIP Co de Phone Number [facility] [address] [place], [place] [phone] [place] [address] 200 [place] [address] * BUN (Blood Urea Nitrogen) (07/12/2023 10:05 AM CDT) BUN (Blood Urea Nitrogen), S 18 6 - 21 mg/dL 07/12/2023 11:22 AM CDT DTL Blood (Blood, Venous) 07/12/2023 10:05 AM CDT 07/12/2023 10:46 AM CDT Durga Hudson M.D. LAB BLOOD ADD-ON [facility] [address] [place] [address], [facility] [address] [place] [address] * Electrolyte (Chem 4) Panel (07/12/2023 10:05 [...] CDT Durga Hudson M.D. LAB BLOOD ADD-ON [facility] [address] [place] [address], [facility] [[email or web address]] [facility] [address] [place] [address] documented in this encounter Visit Diagnoses Diagnosis Mass Kidney documented in this encounter
--- OUTSIDE RECORDS SUMMARY | 2023-07-20 14:14 | XMS_ITS | Encounter Summary ---
Author Name Unknown Organization [facility] Address [address] [place] [address] Care Team Providers Care Tooling Supervisor Name Role Phone Unavailable Primary Care Provider Unavailabl e Reason for Visit * Reason Onset Date Comments Pre-visit Intake 07/11/2023 Encounter Details Date Type Department Care Team (Latest Contact Info) Description 07/11/2023 4:45 PM CDT Clinical Communication Virtual Review in [place], [place] 200 [place], [place] [phone] Pre-visit Intake Social History Tobacco Use Types Packs/Day Years Used Date Smoking Tobacco: Never Smokeless Tobacco: Never Tobacco Cessation:Counseling Given: Not Answered [facility] Utilities Answer Date Recorded In the [...] your living situation today? I have a [facility] place to live 07/11/2023 Sex and [...] Division of Colon and Rectal Surgery in [place], [place] [address] [place] [address] Kayode Daly M.D. [address] [place] [phone] 07/22/2023 9:40 AM CDT Ancillary Procedure Department of Cardiovascular Medicine in [place], [place] [address] [place] [address] Severo Rose, PIdaniaA.-Aj. [address] [place] [phone] 09/28/2023 11:00 AM CDT Comprehensive Visit Division of Nephrology and Hypertension in [place], [place] [address] [place] [phone] Baylee Mullins M.D., Ph.D. [address] [place] [phone] documented as of this encounter Visit Diagnoses Not on filedocumented in this encounter
--- OUTSIDE RECORDS SUMMARY | 2023-07-20 14:14 | XMS_ITS | Referral Summary ---
Author Name Unknown Organization [facility] Address [address] [place] [address] Care Team Providers Care Supervisor Plasma Name Role Phone Unavailable Primary Care Provider Unavailabl e Source Comments Patient records contain information from all sites at [facility]. For routine questions regarding patient records, call [phone] during business hours, M-F 8:00 AM - 5:00 PM Central Time. Record requests for emergency care only can be directed to [phone] at any time.[facility] Encounters Date Type Department Care Team Description 07/20/2023 9:00 AM CDT Virtual Visit Division of Colon and Rectal Surgery in [place], [place] [address] [place] [phone] Severo Rose P.A.-C. Polyp Colon Adenomatous (Primary Dx); Hypertension Essential Primary 07/19/2023 11:45 AM CDT Ancillary Procedure Department of Radiology in [address] [phone] Severo Rose P.A.-C. Polyp Colon Adenomatous 07/12/2023 9:41 AM CDT - 07/12/2023 11:59 PM CDT Hospital Encounter Department of Laboratory Medicine and Pathology, [place], [place] [address] [place] [phone] Durga Hudson M.D. Mass Kidney Discharge Disposition: Home or Self Care 07/12/2023 9:41 AM CDT - 07/12/2023 11:59 PM CDT Hospital Encounter Department of Laboratory Medicine and Pathology, [facility] in [place], [place] [address] [place] [address] Durga Hudson M.D. Mass Kidney Discharge Disposition: Home or Self Care 07/12/2023 1:00 PM CDT Comprehensive Visit Department of Urology in [place], [place] [address] [place] [phone] Evaristo Tate M.D. Mass Kidney (Primary Dx) 07/11/2023 4:45 PM CDT Clinical Communication Virtual Review in [place], [place] 200 [place] [address] Pre-visit Intake 07/11/2023 Clinical Communication Department of Urology in [place], [place] [address] [place] [phone] Evaristo Tate M.D. Pre-visit Testing Orders 07/11/2023 Clinical Communication Division of Nephrology and Hypertension in [address] [phone] Baylee Mullins M.D., Ph.D. Triage approved NARF (Renal cyst. Not PKD Stone); NEW PKD Patient (NEW PKD PT) from Last 3 Months Allergies Active Allergy Reactions Criticality Noted Date Comments Penicillins Rash 11/06/2013 Medications Medication Sig Dispensed Refills Start Date End Date Status amLODIPine (NORVASC) 5 mg tablet TAKE 1 TABLET BY MOUYH DAILY 07/06/2023 Active Social History Tobacco Use Types Packs/Day Years Used Date Smoking Tobacco: Never Smokeless Tobacco: Never Tobacco Cessation:Counseling Given: Not Answered [facility] Utilities Answer Date Recorded In the past 12 months has e [employer], oil, or water [employer] threatened to shut off services in your [...] your living situation today? I have a [facility] place to live 07/11/2023 Sex and Gender Information Value Date Recorded Sex Assigned at Female 07/11/2023 7:23 PM CDT Gender Identity Female 07/11/2023 7:23 PM CDT Sexual Orientation Straight 07/11/2023 7: 23 PM CDT Plan of Treatment Upcoming Encounters Date Type Department Care Team (Latest Contact Info) Description 07/22/2023 9:00 AM CDT Comprehensive Visit Division of Colon and Rectal Surgery in [place], [place] [address] [place] [address] Kayode Daly M.D. [address] [place] [phone] 07/22/2023 9:40 AM CDT Ancillary Procedure Department of Cardiovascular Medicine in [place], [place] [address] [place] [address] Severo Rose P.A.-C. [address] [place] [phone] 09/28/2023 11:00 AM CDT Comprehensive Visit Division of Nephrology and Hypertension in [place], [place] [address] [place] [address] Baylee Mullins M.D., Ph.D. [address] [place] [address] Procedures Procedure Name Priority Date/Time Associated Diagnosis [...] CDT Durga Hudson M.[place] [address], [facility] 200 [place] [address] * Microscopic Automated (07/12/2023 10:26 AM CDT) Microscopy Normal 07/12/2023 11:12 AM CDT DTL RBC None Seen <3 /hpf 07/12/2023 11:12 AM CDT DTL WBC None Seen /hpf 07/12/2023 11:12 AM CDT DTL Comment: ----REFERENCE VALUE---- <4 ??(Males) <11 (Females) Urine 07/12/2023 10:2 6 AM CDT 07/12/2023 10:47 AM CDT Durga Hudson M.D. LAB URINE ORDERABLES Performing Organization Address City/[facility] Co de Phone Number [facility] [address] 200 [place] [address] * pH, Urine (07/12/2023 10:26 AM CDT) pH, U 6.1 4.5 - 8.0 07/12/2023 11: 54 AM CDT DT Urine 07/12/2023 10:2 6 AM CDT 07/12/2023 10:47 AM CDT Durga Hudson M.D. LAB URINE ORDERABLES Performing Organization Address [facility] Co de Phone Number [facility] [address] 200 [place] [address] * Osmolality, Urine (07/12/2023 10:26 AM CDT) Osmolality, U 333 150 - 1150 mOsm/kg 07/12/2023 11:54 AM CDT DT Urine 07/12/2023 10:2 6 AM CDT 07/12/2023 10:47 AM CDT Durga Hudson M.D. LAB URINE ORDERABLES Performing Organization Address City/[facility] Co de Phone Number [facility] [address] 200 [place] [address] * Urinalysis, with Microscopic: Urine, Midstream (07/12/2023 [...] M.D. LAB URINE ORDERABLES Performing Organization Address [facility] Co de Phone Number [facility] 200 [place] [address], [facility] 200 [place] [address] * Electrolyte (Chem 4) Panel (07/12/2023 10:05 [...] M.D. LAB BLOOD ADD-ON Performing Organization Address City/[facility]/ZIP Co de Phone Number [facility] 200 [place] [address], [facility] 200 [place] [address] * CBC with Differential, Blood (07/12/2023 10:05 [...] CDT Durga Hudson M.D. LAB BLOOD ADD-ON [facility] [address] [place] [address], [facility] DTL [facility] [address] 200 [place] [address] * BUN (Blood Urea Nitrogen) (07/12/2023 10:05 AM CDT) BUN (Blood Urea Nitrogen), S 18 6 - 21 mg/dL 07/12/2023 11:22 AM CDT DTL Blood (Blood, Venous) 07/12/2023 10:05 AM CDT 07/12/2023 10:46 AM CDT Narrative Authorizing Provider Result Sirena Hudson M.D. LAB BLOOD ADD-ON [facility] 200 [place] [address] * ALT (Alanine Aminotransferase) (07/12/2023 10:05 AM CDT) Alanine Aminotransferase (ALT), S 15 7 - 45 U/L 07/12/2023 11:22 AM CDT DT Blood (Blood, Venous) 07/12/2023 10:05 AM CDT 07/12/2023 10:46 AM CDT Narrative Authorizing Provider Result Sirena Hudson M.D. LAB BLOOD ADD-ON [facility] 200 [place] [address] * AST (Aspartate Aminotransferase) (07/12/2023 10:05 AM CDT) Aspartate Aminotransferase (AST), S 25 8 - 43 U/L 07/12/2023 11:22 AM CDT DTL Blood (Blood, Venous) 07/12/2023 10:05 AM CDT 07/12/2023 10:46 AM CDT Durga Hudson M.D. LAB BLOOD ADD-ON [facility] 200 [place] [address], [facility] 200 [place] [address] * Alkaline Phosphatase (07/12/2023 10:05 AM CDT) Alkaline Phosphatase, S 57 35 - 104 U/L 07/12/2023 11:22 AM CDT DTL Blood (Blood, Venous) 07/12/2023 10:05 AM CDT 07/12/2023 10:46 AM CDT Durga Hudsno M.D. LAB BLOOD ADD-ON Performing Organization Address City/[facility] Co de Phone Number [facility] 200 [place] [address], [facility] 200 [place] [address] * Creatinine with Estimated GFR (07/12/2023 10:05 AM CDT) Creatinine 0.94 0.59 - 1.04 mg/dL 07/12/2023 11:22 AM CDT DT Estimated GFR (eGFR) 64 >=60 mL/min/BSA 07/12/2023 11:22 AM CDT DT Comment: Estimated GFR calculated using the 2020 CKD_EPI creatinine equation. Blood (Blood, Venous) 07/12/2023 10:05 AM CDT 07/12/2023 10:46 AM CDT Durga Hudson M.D. LAB BLOOD ADD-ON [facility] [address] [place] [address], [facility] 200 [place] [address] * Calcium, Total (07/12/2023 10:05 AM CDT) Calcium, Total, S 9.7 8.8 - 10.2 mg/dL 07/12/2023 11:22 AM CDT DTL Blood (Blood, Venous) 07/12/2023 10:05 AM CDT 07/12/2023 10:46 AM CDT Durga Hudson M.D. LAB BLOOD ADD-ON Performing Organization Address [facility] de Phone Number [facility] [address] [place] [address], [place] DTL [facility] [address] [place] [address] * US RENAL-Outside US Body (07/06/2023 3:10 [...] Provider Not In System IMG US PROCEDURES Performing Organization Address [facility] de Phone Number [facility] NA * CT chest abdomen pelv w con-Outside CT Body (06/29/2023 11:55 AM CDT) Narrative [facility] - 07/04/2023 3:24 PM CDT This order [...] System IMG CT PROCEDURES Performing Organization Address City/[facility] de Phone Number [facility] NA from Last 3 Months or Most Recently Relevant to Health Maintenance
--- OUTSIDE RECORDS SUMMARY | 2023-07-20 14:14 | XMS_ITS | Encounter Summary ---
Author Name Unknown Organization [facility] Address [address] [place] [address] Care Team Providers Care Geothermal Plant Manager Name Role Phone Unavailable Primary Care Provider Unavailabl e Reason for Visit * Reason Onset Date Comments Pre-visit Testing Orders 07/11/2023 Encounter Details Date Type Department Care Team (Latest Contact Info) Description 07/11/2023 Clinical Communication Department of Urology in [place], [place] [address] [place] [phone] Evaristo Tate M.D. [address] [place] [phone] Pre-visit Testing Orders Social History Tobacco Use Types Packs/Day Years Used Date Smoking Tobacco: Never Smokeless Tobacco: Never [facility] Utilities Answer Date Recorded [...] your living situation today? I have a [facility] place to live 07/11/2023 Sex and [...] Division of Colon and Rectal Surgery in [place], [place] [address] [place] [phone] Kayode Daly M.D. [address] [place] [phone] 07/22/2023 9:40 AM CDT Ancillary Procedure Department of Cardiovascular Medicine in [place], [place] [address] [place] [phone] Severo Rose P.A.-C. [address] [place] [phone] 09/28/2023 11:00 AM CDT Comprehensive Visit Division of Nephrology and Hypertension in [place], [place] [address] [place] [phone] Baylee Mullins M.D., Ph.D. [address] [place] [phone] documented as of this encounter Results * Urinalysis, with Microscopic: Urine, Midstream (07/12/2023 [...] M.D. LAB URINE ORDERABLES Performing Organization Address City/[facility]/ZIP Co de Phone Number [facility] [address] 200 [place] [address] * Calcium, Total (07/12/2023 10:05 AM CDT) Pathologist [facility] Calcium, Total, S 9.7 8.8 - 10.2 mg/dL 07/12/2023 11:22 AM CDT DTL Blood (Blood, Venous) 07/12/2023 10:05 AM CDT 07/12/2023 10:46 AM CDT Narrative Authorizing Provider Result Sirena Hudson M.D. LAB BLOOD ADD-ON [facility] [address] [facility] 200 [place] [address] * Creatinine with Estimated GFR (07/12/2023 10:05 AM CDT) Creatinine 0.94 0.59 - 1.04 mg/dL 07/12/2023 11:22 AM CDT DTL Estimated GFR (eGFR) 64 >=60 mL/min/BSA 07/12/2023 11:22 AM CDT DTL Comment: Estimated GFR calculated using the 2020 CKD_EPI creatinine equation. Blood (Blood, Venous) 07/12/2023 10:05 AM CDT 07/12/2023 10:46 AM CDT Durga Hudson M.D. LAB BLOOD ADD-ON [facility] 200 [place] [address], [facility] 200 [place] [address] * CBC with Differential, Blood (07/12/2023 10:05 [...] M.D. LAB BLOOD ADD-ON Performing Organization Address City/[facility]/ZIP Co de Phone Number [facility] [address] 200 [place] [address] * AST (Aspartate Aminotransferase) (07/12/2023 10:05 AM CDT) Aspartate Aminotransferase (AST), S 25 8 - 43 U/L 07/12/2023 11:22 AM CDT DTL Blood (Blood, Venous) 07/12/2023 10:05 AM CDT 07/12/2023 10:46 AM CDT Durga Hudson M.D. LAB BLOOD ADD-ON [facility] [address] 200 [place] [address] * ALT (Alanine Aminotransferase) (07/12/2023 10:05 AM CDT) Alanine Aminotransferase (ALT), S 15 7 - 45 U/L 07/12/2023 11:22 AM CDT DTL Blood (Blood, Venous) 07/12/2023 10:05 AM CDT 07/12/2023 10:46 AM CDT Durga Hudson M.D. LAB BLOOD ADD-ON [facility] [address] 200 [place] [address] * Alkaline Phosphatase (07/12/2023 10:05 AM CDT) Alkaline Phosphatase, S 57 35 - 104 U/L 07/12/2023 11:22 AM CDT DTL Blood (Blood, Venous) 07/12/2023 10:05 AM CDT 07/12/2023 10:46 AM CDT Durga Hudson M.D. LAB BLOOD ADD-ON Performing Organization Address City/[facility] Co de Phone Number [facility] 200 [place], [place] [phone] [place] [address] 200 [place] [address] * BUN (Blood Urea Nitrogen) (07/12/2023 10:05 AM CDT) BUN (Blood Urea Nitrogen), S 18 6 - 21 mg/dL 07/12/2023 11:22 AM CDT DTL Blood (Blood, Venous) 07/12/2023 10:05 AM CDT 07/12/2023 10:46 AM CDT Durga Hudson M.D. LAB BLOOD ADD-ON Performing Organization Address City/[facility]/ZIP Co de Phone Number [facility] 200 [place], [place] [phone] [place] [address] 200 [place] [address] * Electrolyte (Chem 4) Panel (07/12/2023 10:05 [...] CDT Durga Hudson M.D. LAB BLOOD ADD-ON [facility] [address] [place] [address], [facility] DTL [facility] [address] [place] [address] documented in this encounter Visit Diagnoses Diagnosis Mass Kidney- Primary documented in this encounter
--- NOTE | 2023-07-20 14:30 | XR_ITS ---
Patient: PARISH DAWSON Facility:?[facility] Patient ID:?[id number] Site Patient ID:?[id number]. Site :?[id number] Study:?DEXA-Bone Density -07/20/2023 3:00:13 PM Ordering Physician:BIJAN Final Report: DXA BONE MINERAL DENSITY STUDY Reason for exam: Osteopenia. Current height (in): 65. Weight (lb): 125. Menopause age: 46. Ethnicity: White. 1. Have you had a previous hip or vertebral fracture? No. 2. Have you had any fractures during your adult life which did not result from significant trauma (e.g., auto accident)? No. 3. Did either of your parents have a hip fracture? No. 4. Do you smoke? No. 5. Have you ever taken Glucocorticoids? No. 6. Do you have rheumatoid arthritis? No. 7. Do you have secondary osteoporosis? No. 8. Do you drink 3 or more alcoholic drinks per day? No. 9. Are you being treated for osteoporosis? No. 10. Have you ever taken any of the following medications: Actonel, Evista, Fosamax, Miacalcin, Reclast, Boniva, Forteo, HRT (i.e., estrogen/hormone therapy), Protelos, Prolia, Vitamin D, Calcium, other ? please specify. ANSWER: Yes, vitamin D and calcium. 11. Do you have any of the following medical conditions: Anorexia or bulimia, asthma or emphysema, end stage renal disease, hyperparathyroidism, any seizure disorders, cancer, inflammatory bowel diseases, hysterectomy, other ? please specify. ANSWER: Yes, cancer. 12. What was your maximum height (inches)? 65. 13. Do you perform weight bearing exercise regularly? Yes. 14. Do you regularly consume dairy products? Yes. 15. Do you drink caffeinated beverages? Yes. 16. At what age did your period start? 10. 17. Are you premenopausal? No. 18. How many full-term pregnancies have you had? 3. 19. Have you ever missed your period for more than 6 months in a row (not including or menopause)? No. TECHNIQUE: Bone mineral density study was performed using the [employer]. FINDINGS: The results of the study expressed as bone mineral density (BMD) are as follows: Lumbar spine L1 to L4: BMD: 0.811 g/cm2. T-score: -2.1. Z-score: 0.2 Neck Left: BMD: 0.677 g/cm2. T-score: -1.6. Z-score: 0.5 Right: BMD: 0.660 g/cm2. T-score: -1.7. Z-score: 0.3 Total Left: BMD: 0.793 g/cm2. T-score: -1.2. Z-score: 0.5 Right: BMD: 0.742 g/cm2. T-score: -1.6. Z-score: 0.1 IMPRESSION: Osteopenia. *Comparison exams done prior to 09/2019 were performed on different unit, [facility]. COMPARISON: Compared with scan of 01/12/2018, the bone mineral density has decreased by 7.5 percent at the spine and decreased by 5.3 percent at the hip. Compared with scan of 07/07/2015, the bone mineral density has increased by 0.1 percent at the spine and decreased by 0.4 percent at the hip. FRAX 10-year Fracture Risk Major Osteoporotic Fracture: 10% Hip Fracture: 2.1% Reported Risk Factors: [place] () Neck BMD=0.660, BMI=20.8 JOSE GARCIA M.D. NATALIA:elías D& Transcribed: 12:34 p.m. [email or web address] elías/Dictated by: Jose Garcia MD @ 07/21/2023 11:18:00 AM Signed by:Ana Garcia MD @07/21/2023 4:15:46 PM (Electronic Signature)
== END 2023-07-20 14:11 | disposition home or self-care (01) ==
LOC: RAD 14:12
PROVIDERS: PCP Family Medicine; Visit Provider Family Medicine
DX: M85.80 Other specified disorders of bone density and structure, unspecified site (principal); M85.88 Other specified disorders of bone density and structure, other site; Z78.0 Asymptomatic menopausal state
CPT/HCPCS: 77080

== ENCOUNTER 2023-09-12 14:07 | Outpatient (REF) | payer MEDICARE, BC, OTHER, SELFPAY ==
[2023-09-12 16:38] LABS: Basophils Absolute Auto 0.02 K/uL (0.00-0.30); Basophils Percent Auto 0.4 % (0.0-3.0); Eosinophils Percent Auto 1.9 % (0.0-7.0); Hemoglobin* 8.9 gm/dL (12.0-16.0); Immature Granulocytes Abs Auto 0.08 K/uL (0.00-0.30); Immature Granulocytes Pct Auto 1.5 %; Lymphocytes Percent Auto 13.9 % (20-44); Mean Corpuscular HGB Conc 31 gm/dL (32-36); Mean Corpuscular Hemoglobin 27 pg (26-34); Mean Corpuscular Volume 89 fL (80-100); Monocytes Percent Auto 9.6 % (0.0-11.0); Neutrophils Percent Auto 72.7 % (42.0-72.0); Platelet Count* 394 K/uL (140-440); Red Blood Count 3.27 m/uL (4.00-5.20)
[2023-09-12 16:44] LABS: Slide Review Reflex No
== END 2023-09-12 14:08 | disposition home or self-care (01) ==
LOC: NPINS 14:07
PROVIDERS: PCP Family Medicine; Visit Provider Urology
DX: N28.89 Other specified disorders of kidney and ureter (principal)
CPT/HCPCS: 85025

== ENCOUNTER 2024-03-14 08:01 | Outpatient (CLI) | payer MEDICARE, BC, SELFPAY | END 2024-03-14 08:02 | disposition home or self-care (01) | LOC: NFLDREF 10:40 | PROVIDERS: PCP Family Medicine; Visit Provider Family Medicine | DX: I10 Essential (primary) hypertension (principal); D50.9 Iron deficiency anemia, unspecified; M85.80 Other specified disorders of bone density and structure, unspecified site; E78.5 Hyperlipidemia, unspecified | CPT/HCPCS: 80053; 80061; 82306; 82728 ==

== ENCOUNTER 2024-03-21 10:24 | Outpatient (CLI) | payer MEDICARE, BC, SELFPAY | END 2024-03-21 10:25 | disposition home or self-care (01) | LOC: NFLDREF 03-22 05:17 | PROVIDERS: PCP Family Medicine; Referring Provider Family Medicine; Visit Provider Family Medicine | DX: A04.8 Other specified bacterial intestinal infections (principal) | CPT/HCPCS: 87338 ==

== ENCOUNTER 2024-06-08 11:21 | Outpatient (CLI) | payer MEDICARE, BC, SELFPAY | END 2024-06-08 11:22 | disposition home or self-care (01) | LOC: MAMMO 11:22 | PROVIDERS: PCP Family Medicine; Visit Provider Family Medicine | DX: Z12.31 Encounter for screening mammogram for malignant neoplasm of breast (principal); R92.333 Mammographic heterogeneous density, bilateral breasts | CPT/HCPCS: 77063; 77067 ==